=== PATIENT | male | born 1955 | race Caucasian/White ===

== ENCOUNTER 2020-07-10 12:28 | Emergency (ER) | payer BC, OTHER ==
[2020-07-10] MEDS ORDERED: Sodium Chloride 0.9% 10 ML Syringe FLUSH PRN (12:40)
--- NOTE | 2020-07-10 13:10 | EDM.PDOC ---
ED HPI GENERAL MEDICAL PROBLEM - General Stated Complaint: CONFUSION Time Seen by Provider: 07/10/20 12:30 Source of Information: Reports: EMS, Family History Limitations: Reports: No Limitations - History of Present Illness INITIAL COMMENTS - FREE TEXT/NARRATIVE: Pt. presents to ER via EMS. Family states that he went to bed last night at around 9PM and was behaving appropriately with no complaints. states that she heard the patient fall twice at around 3 and 3:30 AM (she sleeps in a separate bedroom) . She states that she and her son checked on the patient, and he was able to answer questions at that time, but his gait was unsteady. She states at around 4:30, she stated that she heard him up walking around complaining of headache. She states that he was using the wall to support himself. She states that he has had some confused speech at times. He was incontinent of urine and stool. He is unable to recall the date. She states that he has been opening doors, turning on faucets, etc. for no apparent reason. Pt. has no history of cerebrovascular disease. No history of previous stoke, tumors, aneurysm, or other pathology. He does have a history of HTN, PVT with pervious DVT (previously on coumadin but not recently), dyslipidemia, and IFG. No history of previous OR. He denies any chest pain, shortness of breath, cough, congestion, fatigue, fever, chills, dysuria, abdominal pain, current headache, nausea, vomiting or other worrisome signs/symptoms. Pt. states that he does remember falling in his bedroom and landed on his L side, but states that he has no continued symptoms from this. Pt. denies any use of drugs or ETOH. EMS called a stroke code prior to arrival to ER. Onset: Today Onset Date: 07/09/20 Onset Time: 21:00 Location: Reports: Generalized - Related Data Allergies Allergy/AdvReac Type Severity Reaction Status Date / Time No Known Drug Allergies Allergy Other Verified 03/14/14 17:47 Home Meds: Home Meds amLODIPine Besylate [Amlodipine Besylate] 5 mg PO DAILY 06/21/13 [History] atorvaSTATin Calcium [Atorvastatin Calcium] 20 mg PO DAILY 06/21/13 [History] Aspirin [Adult Low Dose Aspirin EC] 81 mg PO DAILY 01/16/14 [History] Multivitamin [Multi Vitamin Daily] 1 each PO 01/16/14 [History] Ferrous Sulfate 325 mg PO DAILY 05/28/14 [History] Omeprazole [Prilosec] 20 mg PO BID 05/28/14 [History] ED ROS GENERAL - Review of Systems Review Of Systems: See Below Constitutional: Reports: No Symptoms. Denies: Fever, Chills, Malaise, Weakness, Fatigue HEENT: Reports: No Symptoms Respiratory: Reports: No Symptoms Cardiovascular: Reports: No Symptoms Endocrine: Reports: No Symptoms GI/Abdominal: Reports: No Symptoms : Reports: No Symptoms Musculoskeletal: Reports: No Symptoms Skin: Reports: No Symptoms Neurological: Reports: Confusion, Paresthesia, Gait Disturbance, Other (dysarthria) Psychiatric: Reports: No Symptoms Hematologic/Lymphatic: Reports: No Symptoms Immunologic: Reports: No Symptoms ED EXAM, GENERAL - Physical Exam Exam: See Below Exam Limited By: No Limitations General Appearance: Alert, WD/WN, No Apparent Distress Eye Exam: Left Eye: Other (significant L lateral visual field deficit), Bilateral Eye: EOMI, Normal Fundi, Normal Inspection, PERRL Head: Atraumatic, Normocephalic Neck: Normal Inspection, Supple, Non-Tender, Full Range of Motion Respiratory/Chest: No Respiratory Distress, Lungs Clear, No Accessory Muscle Use, Chest Non-Tender Cardiovascular: Normal Peripheral Pulses, Regular Rate, Rhythm, No Edema, No JVD, No Murmur Peripheral Pulses: 4+: Posterior Tibial (L), Posterior Tibial (R) GI/Abdominal: Soft, Non-Tender, No Distention, No Mass (Male) Exam: Deferred Rectal (Males) Exam: Deferred Back Exam: Normal Inspection, Full Range of Motion Extremities: Normal Inspection, Normal Range of Motion, Non-Tender, Normal Capillary Refill Neurological: Alert, Confused, Disoriented, Sensory/Motor Deficit (L sided), Other (Please see attached NIH stroke scale. Score is 5 (1 off for following commands, 1 for visual field, 1 off for sensation, 1 off for speech content, 1 off for neglect. Incontinent of stool and urine.). No: Normal Gait Psychiatric: Normal Affect, Normal Mood Skin Exam: Warm, Dry, Intact Lymphatic: No Adenopathy #1 Interpretation Rhythm: NSR Course - Orders/Labs/Meds Orders: Active Orders 24 hr Category Date Time Status Chest 1V Frontal [CR] Stat Exams 07/10/20 12:41 Ordered Head wo Cont [CT] Stat Exams 07/10/20 12:40 Taken CULTURE BLOOD [BC] Stat Lab 07/10/20 13:30 Received CULTURE BLOOD [BC] Stat Lab 07/10/20 13:36 Received DRUG SCREEN, URINE [URCHEM] Stat Lab 07/10/20 12:42 Ordered UA RFX JUSTINE AND CULT IF INDIC [URIN] Stat Lab 07/10/20 12:41 Ordered Sodium Chloride 0.9% [Saline Flush] Med 07/10/20 12:40 Active 10 ml FLUSH ASDIRECTED PRN Blood Culture x2 Reflex Set [OM.PC] Stat Oth 07/10/20 12:41 Ordered Peripheral IV Insertion Adult [OM.PC] Routine Oth 07/10/20 12:41 Ordered Medication Orders Sodium Chloride (Saline Flush) 10 ml FLUSH ASDIRECTED PRN PRN Reason: Keep Vein Open Labs: Laboratory Tests 07/10/20 07/10/20 07/10/20 Range/Units 12:46 12:46 12:46 WBC 15.0 H (4.0-10.0) x10^3/uL RBC 5.55 (4.5-6.0) x10^6/uL Hgb 16.2 D (14.0-18.0) g/dL Hct 48.0 (40.0-52.0) % MCV 86.5 (78.0-93.0) fL MCH 29.2 (26.0-32.0) pg MCHC 33.8 (32.0-36.0) g/dL RDW Coeff of Karan 14.8 (10.0-15.0) % Plt Count 260 (130-400) x10^3/uL Add Manual Diff Yes Neutrophils % (Manual) 87 H (50-80) % Band Neutrophils % 1 (0-6) % Lymphocytes % (Manual) 2 L (25-50) % Reactive Lymphs % 2 H (0) % Monocytes % (Manual) 8 (2-11) % Hypersegmented Neuts Rare H Vacuolated Monocytes Rare Platelet Estimate Adequate Giant Platelets Rare H Target Cells Rare PT 9.3 L (9.5-12.3) SEC INR 0.8 L (2.0-3.5) Sodium 140 (136-145) mmol/L Potassium 4.2 (3.5-5.1) mmol/L Chloride 104 (98-107) mmol/L Carbon Dioxide 26 (21-32) mmol/L Anion Gap 14.2 (10-20) mmol/L BUN 27 H (7-18) mg/dL Creatinine 1.0 (0.70-1.30) mg/dL Est Cr Clr Drug Dosing TNP Estimated GFR (MDRD) > 60 Glucose 106 (74-106) mg/dL Lactic Acid (0.4-2.0) mmol/L Calcium 8.9 (8.5-10.1) mg/dL Corrected Calcium 9.22 (8.5-10.1) mg/dL Magnesium 2.0 (1.8-2.4) mg/dL Total Bilirubin 0.5 (0.2-1.0) mg/dL AST 24 (15-37) U/L ALT 64 H (16-63) U/L Alkaline Phosphatase 105 (46-116) U/L POC Troponin I (0.00-0.08) ng/mL C-Reactive Protein < 0.2 (<=0.9) mg/dL NT-Pro-B Natriuret Pep 78 (<=125) pg/mL Total Protein 6.9 (6.4-8.2) g/dL Albumin 3.6 (3.4-5.0) g/dL Globulin 3.3 Albumin/Globulin Ratio 1.09 TSH, Ultra Sensitive 1.877 (0.358-3.74) uIU/mL Ethyl Alcohol < 3 (0-3) mg/dL SARS CoV-2 RNA Rapid KATI (NEGATIVE) 07/10/20 07/10/20 07/10/20 Range/Units 12:46 12:49 13:10 WBC (4.0-10.0) x10^3/uL RBC (4.5-6.0) x10^6/uL Hgb (14.0-18.0) g/dL Hct (40.0-52.0) % MCV (78.0-93.0) fL MCH (26.0-32.0) pg MCHC (32.0-36.0) g/dL RDW Coeff of Karan (10.0-15.0) % Plt Count (130-400) x10^3/uL Add Manual Diff Neutrophils % (Manual) (50-80) % Band Neutrophils % (0-6) % Lymphocytes % (Manual) (25-50) % Reactive Lymphs % (0) % Monocytes % (Manual) (2-11) % Hypersegmented Neuts Vacuolated Monocytes Platelet Estimate Giant Platelets Target Cells PT (9.5-12.3) SEC INR (2.0-3.5) Sodium (136-145) mmol/L Potassium (3.5-5.1) mmol/L Chloride (98-107) mmol/L Carbon Dioxide (21-32) mmol/L Anion Gap (10-20) mmol/L BUN (7-18) mg/dL Creatinine (0.70-1.30) mg/dL Est Cr Clr Drug Dosing Estimated GFR (MDRD) Glucose (74-106) mg/dL Lactic Acid 1.7 (0.4-2.0) mmol/L Calcium (8.5-10.1) mg/dL Corrected Calcium (8.5-10.1) mg/dL Magnesium (1.8-2.4) mg/dL Total Bilirubin (0.2-1.0) mg/dL AST (15-37) U/L ALT (16-63) U/L Alkaline Phosphatase (46-116) U/L POC Troponin I 0.01 (0.00-0.08) ng/mL C-Reactive Protein (<=0.9) mg/dL NT-Pro-B Natriuret Pep (<=125) pg/mL Total Protein (6.4-8.2) g/dL Albumin (3.4-5.0) g/dL Globulin Albumin/Globulin Ratio TSH, Ultra Sensitive (0.358-3.74) uIU/mL Ethyl Alcohol (0-3) mg/dL SARS CoV-2 RNA Rapid KATI Negative (NEGATIVE) Meds: Medications Generic Name Dose Route Start Last Admin Trade Name Freq PRN Reason Stop Dose Admin Sodium Chloride 10 ml 07/10/20 12:40 Saline Flush FLUSH ASDIRECTED PRN Keep Vein Open - Radiology Interpretation Free Text/Narrative:: evidence of acute R frontal, parietal, and occipital infarct with evidence of old frontal infarct as well. No obvious bleeding noted. Departure - Departure Time of Disposition: :03 Disposition: DC/Tfer to Acute Hospital 02 Clinical Impression: CVA (cerebral vascular accident) - Discharge Information Referrals: Adam Serrano MD [Primary Care Provider] - - Problem List Review Problem List Initiated/Reviewed/Updated: Yes - My Orders Last 24 Hours: My Active Orders 07/10/20 12:40 Head wo Cont [CT] Stat Sodium Chloride 0.9% [Saline Flush] 10 ml FLUSH ASDIRECTED PRN 07/10/20 12:41 Chest 1V Frontal [CR] Stat UA RFX JUSTINE AND CULT IF INDIC [URIN] Stat Blood Culture x2 Reflex Set [OM.PC] Stat Peripheral IV Insertion Adult [OM.PC] Routine 07/10/20 12:42 DRUG SCREEN, URINE [URCHEM] Stat 07/10/20 13:30 CULTURE BLOOD [BC] Stat 07/10/20 13:36 CULTURE BLOOD [BC] Stat - Assessment/Plan Last 24 Hours: My Active Orders 07/10/20 12:40 Head wo Cont [CT] Stat Sodium Chloride 0.9% [Saline Flush] 10 ml FLUSH ASDIRECTED PRN 07/10/20 12:41 Chest 1V Frontal [CR] Stat UA RFX JUSTINE AND CULT IF INDIC [URIN] Stat Blood Culture x2 Reflex Set [OM.PC] Stat Peripheral IV Insertion Adult [OM.PC] Routine 07/10/20 12:42 DRUG SCREEN, URINE [URCHEM] Stat 07/10/20 13:30 CULTURE BLOOD [BC] Stat 07/10/20 13:36 CULTURE BLOOD [BC] Stat Plan: Pt. will be transferred to [facility] neuro ICU. He is a code 1. NIH stroke scale total was 5. Dr. Rodriguez accepts the patient in transfer. Pt. will be transported via [facility] ground ambulance. Discussed findings with pt. , Alysa and with the patient. They are in agreement with plan of care.
[2020-07-10 13:23] LABS: CHLORIDE,CL 104 mmol/L (98-107); SODIUM,NA 140 mmol/L (136-145)
[2020-07-10 13:25] LABS: ANION GAP 14.2 mmol/L (10-20)
--- NOTE | 2020-07-10 13:47 | CT ---
[id number] CT/CT Head WO IV EXAM: CT Head WO IV CLINICAL DATA: DYSARTHRIS, LEFT SIDED WEAKNESS. COMPARISON STUDY: None FINDINGS: There are large areas of hypodensity with loss of avalos-white matter differentiation involving the right frontal, parietal and occipital lobes. This is most pronounced within the right occipital lobe. Findings are consistent with subacute infarct. No hemorrhage. No significant mass effect on the surrounding brain or shift of midline. Old infarct with associated encephalomalacia involving the left frontal lobe. Generalized parenchymal atrophy with scattered areas of nonspecific white matter disease, commonly seen as sequela of chronic microvascular ischemia. Viraj foramen magnum. Soft tissues are unremarkable. Paranasal sinuses and mastoid air cells are clear. IMPRESSION: 1. Subacute infarct involving the right frontal, parietal and occipital lobes. This is most pronounced within the right occipital lobe. No hemorrhagic conversion. No significant shift of midline. Findings discussed with ordering provider at time of dictation. Lopez Hernández DO 07/10/20 2218 Thank you for allowing us to participate in the care of your patient.
--- NOTE | 2020-07-10 14:01 | CR ---
[id number] RAD/RAD Chest PA or AP 1V EXAM: RAD Chest PA or AP 1V INDICATION: CONFUSION. COMPARISON: None. DISCUSSION: Cardiomediastinal silhouette is normal in size and contour. No infiltrate, effusion, pneumothorax, or edema. IMPRESSION: No acute cardiopulmonary abnormality. Lopez Hernández DO 07/10/20 1235 Thank you for allowing us to participate in the care of your patient.
[2020-07-10 14:10] LABS: BARBITURATE SCREEN,URINE NEGATIVE (NEGATIVE); BENZODIAZEPINES SCREEN,URINE NEGATIVE (NEGATIVE); EDDP,URINE SCREEN NEGATIVE (NEGATIVE); METHAMPHETAMINE SCREEN, URINE NEGATIVE (NEGATIVE); TCA SCREEN,URINE POSITIVE (NEGATIVE); THC SCREEN,URINE 50 NG/ML NEGATIVE (NEGATIVE)
== END 2020-07-10 14:36 | disposition short-term general hospital (02) ==
LOC: VM.ED 12:28
DX: I63.9 Cerebral infarction, unspecified (principal); I10 Essential (primary) hypertension; E78.5 Hyperlipidemia, unspecified; Z79.899 Other long term (current) drug therapy; Z79.82 Long term (current) use of aspirin; Z20.828 Contact with and (suspected) exposure to other viral communicable diseases
CPT/HCPCS: 36415; 70450; 71045; 80053; 80305-QW; 80307; 81003; 83605; 83735; 83880; 84443; 84484; 85025; 85610; 86140; 87040; 93010; 99284; 99285-25; U0002

== ENCOUNTER 2020-08-11 14:21 | Inpatient (IN) | payer OTHER ==
[2020-08-11] MEDS ORDERED: Ondansetron 4 MG Tab.DIS PO PRN (16:43)
[2020-08-11] MEDS ORDERED: Polyethylene Glycol 3350 Powder 17 GM Packet PO PRN (16:43)
--- NOTE | 2020-08-11 16:56 | PCM.HP.2 ---
H&P History of Present Illness - General Date of Service: 08/11/20 Admit Problem/Dx: Admission Diagnosis/Problem Admission Diagnosis/Problem Stroke due to embolism of right middle cerebral artery - History of Present Illness Initial Comments - Free Text/Narative: Iain Avalos is a 65-year-old male who is admitted today as stepdown for rehab after an acute stroke. He has a history of hypertension, dyslipidemia, smoking, depression. Patient was hospitalized at [facility] in [place] from 07/10/2020 through 07/23/2020; at that point he was discharged to physical rehab through 08/11/2020. Patient originally presented after he had had confusion, slurred speech, and difficulty in word finding. On admission he was found to have a large right hemispheric stroke which is attributed to likely ruptured clot from the right internal carotid artery. Neuro team was also concerned about potential cardiac origin and he was discharged on his seal patch. 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 Patient had a follow-up head CT on 07/28/2020; was restarted on his baby aspirin on 07/29. He did well at rehab completing 3 hours per day including speech therapy for cognitive/medication, physical therapy for remobilization and occupational therapy to aid in his autonomy and a self-cares. At the time of discharge from rehab patient was able to ambulate over 700 feet with no assistive device but did require gait assistance for occasional balance corrections. He still required cueing for scanning to the left to avoid objects and path finding. Provider thought he would benefit from continued PT intervention. In the realm of occupational therapy patient was able to take care of many of his daily tasks but with good direction. He was noted to have slow processing speed, impaired attention, left-sided neglect. He continued to have 2-2-1/2 out of 5 strength in the left upper extremity. As for cognition and language patient was noted to have deficits in the areas of attention, memory, executive functions, and visual spatial skills and processing speed. He is also noted to still have mild oral dysphagia. He was tolerating a regular diet with thins without any signs or symptoms of aspiration. To this provider patient notes that he is doing pretty well. Excited to be closer to home. Still has ongoing weakness in his LUE. Has pain in the shoulder as well; this was xray'd this morning and showed some sublexation of the humeral head (PMR doctor recommended possible sling if patient would like). Still having trouble with his vision on the left side but otherwise feels like he is doing well from a rehab standpoint. Bilateral Pain Score (Numeric/FACES): 6 - Related Data Allergies/Adverse Reactions: Allergies Allergy/AdvReac Type Severity Reaction Status Date / Time No Known Drug Allergies Allergy Other Verified 08/11/20 12:44 Home Medications: Home Meds Aspirin [Adult Low Dose Aspirin EC] 81 mg PO DAILY 01/16/14 [History] Multivitamin [Multi Vitamin Daily] 1 tab PO DAILY@1800 01/16/14 [History] Acetaminophen [Tylenol] 650 mg PO TID 08/11/20 [History] DULoxetine HCl [Duloxetine HCl] 40 mg PO DAILY 08/11/20 [History] Docusate Sodium 100 mg PO BID 08/11/20 [History] Gabapentin [Neurontin] 300 mg PO TID 08/11/20 [History] Melatonin 3 mg PO BEDTIME 08/11/20 [History] Nicotine [Nicotine Patch] 42 mg TOP DAILY 08/11/20 [History] Sennosides/Docusate Sodium [Senna-Docusate Sodium Tablet] 2 tab PO BEDTIME 08/11/20 [History] atorvaSTATin Calcium [Lipitor] 40 mg PO BEDTIME 08/11/20 [History] carvediloL [Carvedilol] 3.125 mg PO BIDMEALS 08/11/20 [History] lisinopriL [Lisinopril] 30 mg PO DAILY 08/11/20 [History] Past Medical History Cardiovascular History: Reports: Blood Clots/VTE/DVT, High Cholesterol, Hypertension, PVD Respiratory History: Reports: Other (See Below) Other Respiratory History: Chronic lung disease Gastrointestinal History: Reports: GI Bleed Musculoskeletal History: Reports: Other (See Below) Other Musculoskeletal History: closed displaced fracture of lateral malleolus fi bula Endocrine/Metabolic History: Reports: Obesity/BMI 30+, Other (See Below) Other Endocrine/Metabolic History: impaired fasting glucose - Past Surgical History HEENT Surgical History: Reports: Tonsillectomy GI Surgical History: Reports: EGD Neurological Surgical History: Reports: Other (See Below) Other Neurological Surgeries/Procedures: emergency craniotomy Musculoskeletal Surgical History: Reports: ORIF Social & Family History - Family History Family Medical History: No Pertinent Family History Respiratory: Reports: None GI: Reports: None - Tobacco Use Tobacco Use Status *Q: Current Every Day Tobacco User Years of Tobacco use: 20 Packs/Tins Daily: 2 Used Tobacco, but Quit: Yes Month/Year Tobacco Last Used: 07/23/2020 Tobacco Use Comment: patient has a plan to quit smokig. 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[employer]) H&P Review of Systems - Review of Systems: Review Of Systems: See Below General: Reports: No Symptoms HEENT: Reports: Visual Changes Pulmonary: Reports: No Symptoms Cardiovascular: Reports: No Symptoms Gastrointestinal: Reports: No Symptoms Genitourinary: Reports: No Symptoms Musculoskeletal: Reports: Shoulder Pain, Other (left arm weakness) Skin: Reports: No Symptoms Psychiatric: Reports: No Symptoms Neurological: Reports: Headache Hematologic/Lymphatic: Reports: Easy Bruising Exam - Exam Exam: See Below - Vital Signs Vital Signs: Last Vital Signs Temp 95.2 F L 08/11/20 14:40 Pulse 86 08/11/20 14:40 Resp 16 08/11/20 14:40 BP 89/56 L 08/11/20 14:40 Pulse Ox 99 08/11/20 14:40 Weight: 196 lb 12.8 oz - Exam General: Alert, Oriented, Cooperative HEENT: Conjunctiva Clear, EOMI, Posterior Pharynx Clear, Pupils Equal, Pupils Reactive, PERRLA Neck: Supple, Trachea Midline Lungs: Clear to Auscultation, Normal Respiratory Effort Cardiovascular: Regular Rate, Regular Rhythm GI/Abdominal Exam: Normal Bowel Sounds, Soft, Non-Tender, No Distention Extremities: Normal Inspection, Non-Tender, No Pedal Edema, Limited Range of Motion (left upper arm) Skin: Warm, Dry, Intact, Other (craniectomy is healing well, incision is CDI) Neurological: Cranial Nerves Intact Neuro Extensive - Mental Status: Alert, Oriented x3, Normal Mood/Affect Neuro Extensive - Motor, Sensory, Reflexes: CN II-XII Intact Psychiatric: Alert, Normal Affect, Normal Mood Sepsis Event Note - Evaluation Sepsis Screening Result: No Definite Risk - Focused Exam Vital Signs: Vital Signs Temp Pulse Resp BP Pulse Ox 08/11/20 14:40 95.2 F L 86 16 89/56 L 99 *Q Meaningful Use (ADM) - VTE *Q VTE Mechanical Contraindications *Q: At Risk for Falls VTE Pharmacological Contraindications *Q: Risk of Bleeding VTE Anticoagulation Contraindications: Medical/Procedure Contrai - VTE Risk Assess *Q Each Risk Factor Represents 1 Point: History of prior major surgery less than 1 month Total Score 1 Point Risk Factors: 1 Each Risk Factor Represents 2 Points: Age 60 - 74 Years Total Score 2 Point Risk Factors: 2 Each Risk Factor Represents 5 Points: Stroke, Less than 1 Month Total Score 5 Point Risk Factors: 5 - Problem List (1) CVA (cerebral vascular accident) SNOMED Code(s): 909872206 ICD Code: I63.9 - CEREBRAL INFARCTION, UNSPECIFIED Status: Acute Current Visit: No (2) Left arm weakness SNOMED Code(s): 554285937 ICD Code: R29.898 - OTH SYMPTOMS AND SIGNS INVOLVING THE MUSCULOSKELETAL SYSTEM Status: Acute Current Visit: Yes (3) HTN (hypertension) SNOMED Code(s): 46614197 ICD Code: I10 - ESSENTIAL (PRIMARY) HYPERTENSION Status: Acute Current Visit: Yes (4) HLD (hyperlipidemia) SNOMED Code(s): 33031351 ICD Code: E78.5 - HYPERLIPIDEMIA, UNSPECIFIED Status: Acute Current Visit: Yes (5) Depression SNOMED Code(s): 25421573 ICD Code: F32.9 - MAJOR DEPRESSIVE DISORDER, SINGLE EPISODE, UNSPECIFIED Status: Acute Current Visit: Yes Problem List Initiated/Reviewed/Updated: Yes Orders Last 24hrs: Active Orders 24 hr Category Date Time Status Patient Status [ADT] Routine ADT 08/11/20 16:43 Ordered Ambulate [RC] PER UNIT ROUTINE Care 08/11/20 16:46 Ordered Antiembolic Devices [RC] PER UNIT ROUTINE Care 08/11/20 16:47 Ordered Oxygen Therapy [RC] PRN Care 08/11/20 16:43 Ordered Up With Assistance [RC] ASDIRECTED Care 08/11/20 16:43 Ordered Vital Signs [RC] DAILY Care 08/11/20 16:43 Ordered OT Evaluation and Treatment [CONS] Routine Cons 08/11/20 16:43 Ordered PT Evaluation and Treatment [CONS] Routine Cons 08/11/20 16:43 Ordered CUSTOMS COMPLIANCE MANAGER Evaluation and Treatment [CONS] Routine Cons 08/11/20 16:43 Ordered Regular Diet [DIET] Diet 08/11/20 Dinner Ordered Acetaminophen [TylenoL] Med 08/11/20 16:43 Ordered 650 mg PO Q4H PRN Aspirin [Halfprin] Med 08/12/20 08:00 Ordered 81 mg PO DAILY DULoxetine HCl [Duloxetine HCl] Med 08/12/20 08:00 Ordered 40 mg PO DAILY Docusate Sodium [Colace] Med 08/11/20 16:43 Ordered 100 mg PO BID PRN Gabapentin [Neurontin] Med 08/11/20 20:00 Ordered 300 mg PO TID Melatonin Med 08/11/20 20:00 Ordered 3 mg PO BEDTIME Multivitamin [Multi-Vitamin Daily] Med 08/11/20 18:00 Ordered 1 tab PO DAILY@1800 Nicotine [Habitrol] Med 08/12/20 08:00 Ordered 42 mg TOP DAILY Ondansetron [Zofran ODT] Med 08/11/20 16:43 Ordered 4 mg PO Q4H PRN atorvaSTATin [Lipitor] Med 08/11/20 20:00 Ordered 40 mg PO BEDTIME carvediloL [Coreg] Med 08/11/20 18:00 Ordered 3.125 mg PO BIDMEALS lisinopriL [Lisinopril] Med 08/12/20 08:00 Ordered 30 mg PO DAILY polyethylene glycoL 3350 [MiraLAX] Med 08/11/20 16:43 Ordered 17 gm PO DAILY PRN Anticoagulation Contraindications VTE [AST] Per Unit Oth 08/11/20 16:43 Ordered Routine Antiembolic Hose [OM.PC] Per Unit Routine Oth 08/11/20 16:46 Ordered Resuscitation Status Routine Resus Stat 08/11/20 16:43 Ordered Medication Orders Acetaminophen (Tylenol) 650 mg PO Q4H PRN PRN Reason: Pain (Mild 1-3)/fever Aspirin (Halfprin) 81 mg PO DAILY MARJ Atorvastatin Calcium (Lipitor) 40 mg PO BEDTIME MARJ Carvedilol (Coreg) 3.125 mg PO BIDMEALS MARJ Docusate Sodium (Colace) 100 mg PO BID PRN PRN Reason: Constipation Gabapentin (Neurontin) 300 mg PO TID MARJ Non-Formulary Medication (Duloxetine Hcl [Duloxetine Hcl]) 40 mg PO DAILY [facility] Non-Formulary Medication (Lisinopril [Lisinopril]) 30 mg PO DAILY [facility] Ondansetron HCl (Zofran Odt) 4 mg PO Q4H PRN PRN Reason: nausea, able to take PO Polyethylene Glycol (Miralax) 17 gm PO DAILY PRN PRN Reason: Constipation Assessment/Plan Comment:: 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 Patient does have ziopatch in place for 2 weeks - The patient has residual left hemiparesis, has been doing therapy with PMR prior to transfer Plan: - Continue PT, OT, ST - At this time up with 1 assist from nursing - Continued use of helmet while out of bed - Continue statin, aspirin - No other DVT prophylaxis given hemorrhagic transformation of his stroke - Continues on scheduled neurontin for pain control: 300mg TID Left shoulder pain - Xray 08/11/20 dmeonstrated probably sublexation of the humeral head Plan: - Tylenol, heat, ice for pain - Could consider use of sling Chronic: - HTN - continue norvasc, coreg, lisinopril. Will keep close eye on BP as he was having some hypotensive episodes at rehab - Depression - continue duloxetine 40mg daily - HLD - continue atorvastatin - Tobacco use disorder - continue patches (42mg daily) Diet: regular DVT: none (stockings, baby aspirin, ambulatory, s/p stroke with craniectomy) Code: Full Disposition: admitting to swing bed for ongoing therapies with hopes of returning home. Patient will benefit from ongoing PT, OT, ST until deemed stable by each service for next stage of care. - Mortality Measure Prognosis:: Good
[2020-08-11] MEDS: Multivitamins with Iron/Calcium/Folic Acid/Minerals Tab PO SCH (20:38)
[2020-08-11] MEDS: Carvedilol 3.125 MG Tab PO SCH (20:38)
[2020-08-11] MEDS: Gabapentin 300 MG Cap PO SCH (20:38)
[2020-08-11] MEDS: Docusate Sodium 100 MG Cap PO PRN (20:38)
[2020-08-11] MEDS: Melatonin 3 MG Tab PO SCH (20:39)
[2020-08-11] MEDS: atorvaSTATin 40 MG Tab PO SCH (20:39)
[2020-08-12] MEDS: Aspirin 81 MG Tab.EC PO SCH (07:57)
[2020-08-12] MEDS: Gabapentin 300 MG Cap PO SCH ×3 (07:57→19:30)
[2020-08-12] MEDS: DULoxetine 20 MG Cap PO SCH (07:57)
[2020-08-12] MEDS: Nicotine 21 MG/24 Hr Patch TOP SCH (07:58)
[2020-08-12] MEDS: Lisinopril 10 MG Tab PO SCH (07:59)
[2020-08-12] MEDS: Carvedilol 3.125 MG Tab PO SCH ×2 (07:59→17:49)
[2020-08-12] MEDS: Acetaminophen 325 MG Tab PO PRN ×2 (08:09→19:30)
[2020-08-12] MEDS: Multivitamins with Iron/Calcium/Folic Acid/Minerals Tab PO SCH (17:49)
[2020-08-12] MEDS: Docusate Sodium 100 MG Cap PO PRN (17:49)
[2020-08-12] MEDS: Melatonin 3 MG Tab PO SCH (19:30)
[2020-08-12] MEDS: atorvaSTATin 40 MG Tab PO SCH (19:30)
[2020-08-13] MEDS: Acetaminophen 325 MG Tab PO PRN ×2 (07:57→20:04)
[2020-08-13] MEDS: Aspirin 81 MG Tab.EC PO SCH (07:58)
[2020-08-13] MEDS: Nicotine 21 MG/24 Hr Patch TOP SCH (07:58)
[2020-08-13] MEDS: Lisinopril 10 MG Tab PO SCH (07:58)
[2020-08-13] MEDS: Gabapentin 300 MG Cap PO SCH ×3 (07:59→20:05)
[2020-08-13] MEDS: Carvedilol 3.125 MG Tab PO SCH ×2 (07:59→17:49)
[2020-08-13] MEDS: DULoxetine 20 MG Cap PO SCH (07:59)
[2020-08-13] MEDS: Multivitamins with Iron/Calcium/Folic Acid/Minerals Tab PO SCH (17:50)
[2020-08-13] MEDS: atorvaSTATin 40 MG Tab PO SCH (20:05)
[2020-08-13] MEDS: Melatonin 3 MG Tab PO SCH (20:05)
[2020-08-14] MEDS: Acetaminophen 325 MG Tab PO PRN ×3 (04:57→21:13)
[2020-08-14] MEDS: Nicotine 21 MG/24 Hr Patch TOP SCH (08:15)
[2020-08-14] MEDS: DULoxetine 20 MG Cap PO SCH (08:17)
[2020-08-14] MEDS: Carvedilol 3.125 MG Tab PO SCH ×2 (08:17→17:58)
[2020-08-14] MEDS: Aspirin 81 MG Tab.EC PO SCH (08:18)
[2020-08-14] MEDS: Gabapentin 300 MG Cap PO SCH ×3 (08:18→19:50)
[2020-08-14] MEDS: Lisinopril 10 MG Tab PO SCH (08:18)
[2020-08-14] MEDS: Multivitamins with Iron/Calcium/Folic Acid/Minerals Tab PO SCH (17:58)
[2020-08-14] MEDS: atorvaSTATin 40 MG Tab PO SCH (19:50)
[2020-08-14] MEDS: Melatonin 3 MG Tab PO SCH (19:50)
[2020-08-15] MEDS: Nicotine 21 MG/24 Hr Patch TOP SCH (08:10)
[2020-08-15] MEDS: Acetaminophen 325 MG Tab PO PRN ×2 (08:10→19:46)
[2020-08-15] MEDS: Carvedilol 3.125 MG Tab PO SCH ×2 (08:11→18:15)
[2020-08-15] MEDS: DULoxetine 20 MG Cap PO SCH (08:11)
[2020-08-15] MEDS: Gabapentin 300 MG Cap PO SCH ×3 (08:11→19:45)
[2020-08-15] MEDS: Lisinopril 10 MG Tab PO SCH (08:12)
[2020-08-15] MEDS: Aspirin 81 MG Tab.EC PO SCH (08:12)
[2020-08-15] MEDS: Multivitamins with Iron/Calcium/Folic Acid/Minerals Tab PO SCH (18:15)
[2020-08-15] MEDS: atorvaSTATin 40 MG Tab PO SCH (19:45)
[2020-08-15] MEDS: Melatonin 3 MG Tab PO SCH (19:45)
[2020-08-15] MEDS: Docusate Sodium 100 MG Cap PO PRN (19:45)
[2020-08-16] MEDS: Nicotine 21 MG/24 Hr Patch TOP SCH (08:07)
[2020-08-16] MEDS: Gabapentin 300 MG Cap PO SCH ×3 (08:08→20:04)
[2020-08-16] MEDS: Acetaminophen 325 MG Tab PO PRN ×2 (08:08→20:04)
[2020-08-16] MEDS: Aspirin 81 MG Tab.EC PO SCH (08:08)
[2020-08-16] MEDS: DULoxetine 20 MG Cap PO SCH (08:09)
[2020-08-16] MEDS: Lisinopril 10 MG Tab PO SCH (08:09)
[2020-08-16] MEDS: Carvedilol 3.125 MG Tab PO SCH ×2 (08:09→18:27)
[2020-08-16] MEDS: Multivitamins with Iron/Calcium/Folic Acid/Minerals Tab PO SCH (18:27)
[2020-08-16] MEDS: atorvaSTATin 40 MG Tab PO SCH (20:04)
[2020-08-16] MEDS: Melatonin 3 MG Tab PO SCH (20:04)
[2020-08-16] MEDS: Docusate Sodium 100 MG Cap PO PRN (20:04)
[2020-08-17] MEDS: Acetaminophen 325 MG Tab PO PRN ×2 (08:53→19:50)
[2020-08-17] MEDS: Nicotine 21 MG/24 Hr Patch TOP SCH (08:53)
[2020-08-17] MEDS: Carvedilol 3.125 MG Tab PO SCH ×2 (08:54→17:57)
[2020-08-17] MEDS: DULoxetine 20 MG Cap PO SCH (08:54)
[2020-08-17] MEDS: Lisinopril 10 MG Tab PO SCH (08:54)
[2020-08-17] MEDS: Aspirin 81 MG Tab.EC PO SCH (08:54)
[2020-08-17] MEDS: Gabapentin 300 MG Cap PO SCH ×3 (08:54→19:50)
[2020-08-17] MEDS: Multivitamins with Iron/Calcium/Folic Acid/Minerals Tab PO SCH (17:57)
[2020-08-17] MEDS: atorvaSTATin 40 MG Tab PO SCH (19:50)
[2020-08-17] MEDS: Melatonin 3 MG Tab PO SCH (19:50)
[2020-08-18] MEDS: Nicotine 21 MG/24 Hr Patch TOP SCH (08:36)
[2020-08-18] MEDS: Gabapentin 300 MG Cap PO SCH ×3 (08:36→20:15)
[2020-08-18] MEDS: Lisinopril 10 MG Tab PO SCH (08:36)
[2020-08-18] MEDS: Carvedilol 3.125 MG Tab PO SCH ×2 (08:37→18:16)
[2020-08-18] MEDS: DULoxetine 20 MG Cap PO SCH (08:37)
[2020-08-18] MEDS: Aspirin 81 MG Tab.EC PO SCH (08:38)
[2020-08-18] MEDS: Multivitamins with Iron/Calcium/Folic Acid/Minerals Tab PO SCH (18:14)
[2020-08-18] MEDS: atorvaSTATin 40 MG Tab PO SCH (20:14)
[2020-08-18] MEDS: Melatonin 3 MG Tab PO SCH (20:15)
[2020-08-18] MEDS: Acetaminophen 325 MG Tab PO PRN (20:15)
[2020-08-19] MEDS: DULoxetine 20 MG Cap PO SCH (08:22)
[2020-08-19] MEDS: Carvedilol 3.125 MG Tab PO SCH ×2 (08:23→18:21)
[2020-08-19] MEDS: Lisinopril 10 MG Tab PO SCH (08:23)
[2020-08-19] MEDS: Aspirin 81 MG Tab.EC PO SCH (08:24)
[2020-08-19] MEDS: Gabapentin 300 MG Cap PO SCH ×3 (08:24→20:07)
[2020-08-19] MEDS: Nicotine 21 MG/24 Hr Patch TOP SCH (08:24)
[2020-08-19] MEDS: Multivitamins with Iron/Calcium/Folic Acid/Minerals Tab PO SCH (18:21)
[2020-08-19] MEDS: atorvaSTATin 40 MG Tab PO SCH (20:07)
[2020-08-19] MEDS: Melatonin 3 MG Tab PO SCH (20:07)
[2020-08-19] MEDS: Acetaminophen 325 MG Tab PO PRN (20:08)
[2020-08-20] MEDS: DULoxetine 20 MG Cap PO SCH (07:48)
[2020-08-20] MEDS: Gabapentin 300 MG Cap PO SCH ×3 (07:48→19:29)
[2020-08-20] MEDS: Aspirin 81 MG Tab.EC PO SCH (07:48)
[2020-08-20] MEDS: Nicotine 21 MG/24 Hr Patch TOP SCH (07:48)
[2020-08-20] MEDS: Lisinopril 10 MG Tab PO SCH (07:49)
[2020-08-20] MEDS: Acetaminophen 325 MG Tab PO PRN ×2 (07:49→18:00)
[2020-08-20] MEDS: Carvedilol 3.125 MG Tab PO SCH ×2 (07:49→17:58)
[2020-08-20] MEDS ORDERED: [UNRECOGNIZED DRUG - OTHER] EYEBOTH PRN ×2 (17:08→17:33)
[2020-08-20] MEDS ORDERED: [UNRECOGNIZED DRUG - OTHER] EYEBOTH PRN (17:35)
[2020-08-20] MEDS: Multivitamins with Iron/Calcium/Folic Acid/Minerals Tab PO SCH (17:57)
[2020-08-20] MEDS: Melatonin 3 MG Tab PO SCH (19:30)
[2020-08-20] MEDS: atorvaSTATin 40 MG Tab PO SCH (19:30)
[2020-08-21] MEDS: Gabapentin 300 MG Cap PO SCH ×3 (11:08→19:42)
[2020-08-21] MEDS: Aspirin 81 MG Tab.EC PO SCH (11:09)
[2020-08-21] MEDS: DULoxetine 20 MG Cap PO SCH (11:09)
[2020-08-21] MEDS: Lisinopril 10 MG Tab PO SCH (11:16)
[2020-08-21] MEDS: Nicotine 21 MG/24 Hr Patch TOP SCH (11:17)
[2020-08-21] MEDS: Carvedilol 3.125 MG Tab PO SCH ×2 (11:18→18:06)
[2020-08-21] MEDS: Acetaminophen 325 MG Tab PO PRN (11:19)
[2020-08-21] MEDS: Multivitamins with Iron/Calcium/Folic Acid/Minerals Tab PO SCH (17:58)
[2020-08-21] MEDS: Melatonin 3 MG Tab PO SCH (19:42)
[2020-08-21] MEDS: atorvaSTATin 40 MG Tab PO SCH (19:42)
[2020-08-21] MEDS: Docusate Sodium 100 MG Cap PO PRN (19:44)
[2020-08-22] MEDS: Gabapentin 300 MG Cap PO SCH ×3 (07:43→20:24)
[2020-08-22] MEDS: Aspirin 81 MG Tab.EC PO SCH (07:43)
[2020-08-22] MEDS: Lisinopril 10 MG Tab PO SCH (07:43)
[2020-08-22] MEDS: Carvedilol 3.125 MG Tab PO SCH ×2 (07:44→18:32)
[2020-08-22] MEDS: Nicotine 21 MG/24 Hr Patch TOP SCH (07:45)
[2020-08-22] MEDS: DULoxetine 20 MG Cap PO SCH (07:45)
[2020-08-22] MEDS: Multivitamins with Iron/Calcium/Folic Acid/Minerals Tab PO SCH (18:32)
[2020-08-22] MEDS: atorvaSTATin 40 MG Tab PO SCH (20:24)
[2020-08-22] MEDS: Melatonin 3 MG Tab PO SCH (20:24)
[2020-08-22] MEDS: Acetaminophen 325 MG Tab PO PRN (20:26)
[2020-08-23] MEDS: Acetaminophen 325 MG Tab PO PRN ×3 (07:53→20:04)
[2020-08-23] MEDS: Nicotine 21 MG/24 Hr Patch TOP SCH (07:53)
[2020-08-23] MEDS: DULoxetine 20 MG Cap PO SCH (07:54)
[2020-08-23] MEDS: Aspirin 81 MG Tab.EC PO SCH (07:54)
[2020-08-23] MEDS: Carvedilol 3.125 MG Tab PO SCH ×2 (07:54→18:03)
[2020-08-23] MEDS: Lisinopril 10 MG Tab PO SCH (07:54)
[2020-08-23] MEDS: Gabapentin 300 MG Cap PO SCH ×3 (07:54→20:04)
[2020-08-23] MEDS: Multivitamins with Iron/Calcium/Folic Acid/Minerals Tab PO SCH (18:03)
[2020-08-23] MEDS: atorvaSTATin 40 MG Tab PO SCH (20:04)
[2020-08-23] MEDS: Melatonin 3 MG Tab PO SCH (20:04)
[2020-08-24] MEDS: Nicotine 21 MG/24 Hr Patch TOP SCH (07:45)
[2020-08-24] MEDS: DULoxetine 20 MG Cap PO SCH (07:46)
[2020-08-24] MEDS: Acetaminophen 325 MG Tab PO PRN ×3 (07:46→20:02)
[2020-08-24] MEDS: Lisinopril 10 MG Tab PO SCH (07:46)
[2020-08-24] MEDS: Gabapentin 300 MG Cap PO SCH ×3 (07:46→20:02)
[2020-08-24] MEDS: Aspirin 81 MG Tab.EC PO SCH (07:46)
[2020-08-24] MEDS: Carvedilol 3.125 MG Tab PO SCH ×2 (07:47→18:03)
[2020-08-24] MEDS: Multivitamins with Iron/Calcium/Folic Acid/Minerals Tab PO SCH (18:03)
[2020-08-24] MEDS: Docusate Sodium 100 MG Cap PO PRN (18:05)
[2020-08-24] MEDS: Melatonin 3 MG Tab PO SCH (20:02)
[2020-08-24] MEDS: atorvaSTATin 40 MG Tab PO SCH (20:02)
[2020-08-25] MEDS: Lisinopril 10 MG Tab PO SCH (07:28)
[2020-08-25] MEDS: DULoxetine 20 MG Cap PO SCH (07:28)
[2020-08-25] MEDS: Nicotine 21 MG/24 Hr Patch TOP SCH (07:28)
[2020-08-25] MEDS: Gabapentin 300 MG Cap PO SCH ×3 (07:28→20:33)
[2020-08-25] MEDS: Acetaminophen 325 MG Tab PO PRN ×3 (07:29→20:33)
[2020-08-25] MEDS: Carvedilol 3.125 MG Tab PO SCH ×2 (07:29→18:01)
[2020-08-25] MEDS: Aspirin 81 MG Tab.EC PO SCH (07:29)
[2020-08-25] MEDS: Multivitamins with Iron/Calcium/Folic Acid/Minerals Tab PO SCH (18:00)
[2020-08-25] MEDS: atorvaSTATin 40 MG Tab PO SCH (20:32)
[2020-08-25] MEDS: Melatonin 3 MG Tab PO SCH (20:33)
[2020-08-26] MEDS: DULoxetine 20 MG Cap PO SCH (08:23)
[2020-08-26] MEDS: Lisinopril 10 MG Tab PO SCH (08:23)
[2020-08-26] MEDS: Nicotine 21 MG/24 Hr Patch TOP SCH (08:23)
[2020-08-26] MEDS: Acetaminophen 325 MG Tab PO PRN ×3 (08:23→19:40)
[2020-08-26] MEDS: Gabapentin 300 MG Cap PO SCH ×3 (08:24→19:41)
[2020-08-26] MEDS: Carvedilol 3.125 MG Tab PO SCH ×2 (08:24→17:52)
[2020-08-26] MEDS: Aspirin 81 MG Tab.EC PO SCH (08:24)
[2020-08-26] MEDS: Multivitamins with Iron/Calcium/Folic Acid/Minerals Tab PO SCH (17:52)
[2020-08-26] MEDS: Melatonin 3 MG Tab PO SCH (19:41)
[2020-08-26] MEDS: atorvaSTATin 40 MG Tab PO SCH (19:41)
[2020-08-26] MEDS: Docusate Sodium 100 MG Cap PO PRN (19:41)
[2020-08-27] MEDS: Nicotine 21 MG/24 Hr Patch TOP SCH (08:31)
[2020-08-27] MEDS: Lisinopril 10 MG Tab PO SCH (08:32)
[2020-08-27] MEDS: DULoxetine 20 MG Cap PO SCH (08:34)
[2020-08-27] MEDS: Carvedilol 3.125 MG Tab PO SCH ×2 (08:34→17:40)
[2020-08-27] MEDS: Gabapentin 300 MG Cap PO SCH ×3 (08:34→21:12)
[2020-08-27] MEDS: Aspirin 81 MG Tab.EC PO SCH (08:34)
[2020-08-27] MEDS: Acetaminophen 325 MG Tab PO PRN ×2 (08:35→21:12)
[2020-08-27] MEDS: Multivitamins with Iron/Calcium/Folic Acid/Minerals Tab PO SCH (17:40)
[2020-08-27] MEDS: Melatonin 3 MG Tab PO SCH (21:11)
[2020-08-27] MEDS: atorvaSTATin 40 MG Tab PO SCH (21:12)
[2020-08-28] MEDS: DULoxetine 20 MG Cap PO SCH (08:18)
[2020-08-28] MEDS: Nicotine 21 MG/24 Hr Patch TOP SCH (08:18)
[2020-08-28] MEDS: Aspirin 81 MG Tab.EC PO SCH (08:19)
[2020-08-28] MEDS: Carvedilol 3.125 MG Tab PO SCH ×2 (08:19→18:42)
[2020-08-28] MEDS: Gabapentin 300 MG Cap PO SCH ×3 (08:19→19:48)
[2020-08-28] MEDS: Lisinopril 10 MG Tab PO SCH (08:19)
[2020-08-28] MEDS: Multivitamins with Iron/Calcium/Folic Acid/Minerals Tab PO SCH (18:42)
[2020-08-28] MEDS: Melatonin 3 MG Tab PO SCH (19:48)
[2020-08-28] MEDS: atorvaSTATin 40 MG Tab PO SCH (19:48)
[2020-08-28] MEDS: Acetaminophen 325 MG Tab PO PRN (19:48)
[2020-08-29] MEDS: Lisinopril 10 MG Tab PO SCH (08:45)
[2020-08-29] MEDS: Gabapentin 300 MG Cap PO SCH ×3 (08:45→20:27)
[2020-08-29] MEDS: Carvedilol 3.125 MG Tab PO SCH ×2 (08:45→18:23)
[2020-08-29] MEDS: DULoxetine 20 MG Cap PO SCH (08:45)
[2020-08-29] MEDS: Nicotine 21 MG/24 Hr Patch TOP SCH (08:45)
[2020-08-29] MEDS: Aspirin 81 MG Tab.EC PO SCH (08:45)
[2020-08-29] MEDS: Acetaminophen 325 MG Tab PO PRN ×2 (08:46→20:27)
[2020-08-29] MEDS: Multivitamins with Iron/Calcium/Folic Acid/Minerals Tab PO SCH (18:23)
[2020-08-29] MEDS: atorvaSTATin 40 MG Tab PO SCH (20:26)
[2020-08-29] MEDS: Melatonin 3 MG Tab PO SCH (20:27)
[2020-08-30] MEDS: Lisinopril 10 MG Tab PO SCH (09:54)
[2020-08-30] MEDS: Aspirin 81 MG Tab.EC PO SCH (09:55)
[2020-08-30] MEDS: Carvedilol 3.125 MG Tab PO SCH ×2 (09:55→17:48)
[2020-08-30] MEDS: Nicotine 21 MG/24 Hr Patch TOP SCH (09:56)
[2020-08-30] MEDS: DULoxetine 20 MG Cap PO SCH (09:56)
[2020-08-30] MEDS: Gabapentin 300 MG Cap PO SCH ×3 (09:56→20:27)
[2020-08-30] MEDS: Acetaminophen 325 MG Tab PO PRN ×2 (10:05→20:27)
[2020-08-30] MEDS: Multivitamins with Iron/Calcium/Folic Acid/Minerals Tab PO SCH (17:48)
[2020-08-30] MEDS: Melatonin 3 MG Tab PO SCH (20:27)
[2020-08-30] MEDS: atorvaSTATin 40 MG Tab PO SCH (20:27)
[2020-08-31] MEDS: Acetaminophen 325 MG Tab PO PRN ×3 (07:59→20:33)
[2020-08-31] MEDS: Gabapentin 300 MG Cap PO SCH ×3 (07:59→20:33)
[2020-08-31] MEDS: DULoxetine 20 MG Cap PO SCH (07:59)
[2020-08-31] MEDS: Lisinopril 10 MG Tab PO SCH (07:59)
[2020-08-31] MEDS: Nicotine 21 MG/24 Hr Patch TOP SCH (07:59)
[2020-08-31] MEDS: Carvedilol 3.125 MG Tab PO SCH ×2 (07:59→17:40)
[2020-08-31] MEDS: Aspirin 81 MG Tab.EC PO SCH (08:00)
[2020-08-31] MEDS: Docusate Sodium 100 MG Cap PO PRN (12:30)
[2020-08-31] MEDS: Multivitamins with Iron/Calcium/Folic Acid/Minerals Tab PO SCH (17:40)
[2020-08-31] MEDS: Melatonin 3 MG Tab PO SCH (20:33)
[2020-08-31] MEDS: atorvaSTATin 40 MG Tab PO SCH (20:33)
[2020-09-01] MEDS: Nicotine 21 MG/24 Hr Patch TOP SCH (07:25)
[2020-09-01] MEDS: Acetaminophen 325 MG Tab PO PRN ×3 (07:25→20:03)
[2020-09-01] MEDS: DULoxetine 20 MG Cap PO SCH (07:25)
[2020-09-01] MEDS: Carvedilol 3.125 MG Tab PO SCH ×2 (07:25→17:36)
[2020-09-01] MEDS: Gabapentin 300 MG Cap PO SCH ×3 (07:25→20:03)
[2020-09-01] MEDS: Aspirin 81 MG Tab.EC PO SCH (07:25)
[2020-09-01] MEDS: Lisinopril 10 MG Tab PO SCH (10:09)
[2020-09-01] MEDS: Multivitamins with Iron/Calcium/Folic Acid/Minerals Tab PO SCH (17:35)
[2020-09-01] MEDS: Docusate Sodium 100 MG Cap PO PRN (17:41)
[2020-09-01] MEDS: atorvaSTATin 40 MG Tab PO SCH (20:02)
[2020-09-01] MEDS: Melatonin 3 MG Tab PO SCH (20:03)
[2020-09-02] MEDS: Acetaminophen 325 MG Tab PO PRN ×2 (06:28→20:39)
[2020-09-02] MEDS: Nicotine 21 MG/24 Hr Patch TOP SCH (08:50)
[2020-09-02] MEDS: Gabapentin 300 MG Cap PO SCH ×3 (08:51→20:39)
[2020-09-02] MEDS: DULoxetine 20 MG Cap PO SCH (08:51)
[2020-09-02] MEDS: Lisinopril 10 MG Tab PO SCH (08:51)
[2020-09-02] MEDS: Aspirin 81 MG Tab.EC PO SCH (08:51)
[2020-09-02] MEDS: Carvedilol 3.125 MG Tab PO SCH ×2 (08:55→17:39)
[2020-09-02] MEDS: Multivitamins with Iron/Calcium/Folic Acid/Minerals Tab PO SCH (17:39)
[2020-09-02] MEDS: Melatonin 3 MG Tab PO SCH (20:38)
[2020-09-02] MEDS: atorvaSTATin 40 MG Tab PO SCH (20:38)
[2020-09-03] MEDS: Aspirin 81 MG Tab.EC PO SCH (07:23)
[2020-09-03] MEDS: Lisinopril 10 MG Tab PO SCH (07:23)
[2020-09-03] MEDS: Acetaminophen 325 MG Tab PO PRN ×2 (07:23→11:38)
[2020-09-03] MEDS: Nicotine 21 MG/24 Hr Patch TOP SCH (07:23)
[2020-09-03] MEDS: DULoxetine 20 MG Cap PO SCH (07:23)
[2020-09-03] MEDS: Gabapentin 300 MG Cap PO SCH ×2 (07:24→11:39)
[2020-09-03] MEDS: Carvedilol 3.125 MG Tab PO SCH (07:24)
--- NOTE | 2020-09-03 12:28 | PCM.DCSUM1 ---
Discharge Summary - Hospital Course Free Text/Narrative:: Iain Avalos is a 65-year-old male who is admitted to [facility] from 08/11/20- 09/03/20 as stepdown for rehab after an acute stroke. He has a history of hypertension, dyslipidemia, smoking, depression. Patient was hospitalized at [facility] from 07/10/2020 through 07/23/2020; at that point he was discharged to physical rehab through 08/11/2020. Patient originally presented after he had had confusion, slurred speech, and difficulty in word finding. On admission he was found to have a large right hemispheric stroke which is attributed to likely ruptured clot from the right internal carotid artery. Neuro team was also concerned about potential cardiac origin and he was discharged on his seal patch. 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 Patient had a follow-up head CT on 07/28/2020; was restarted on his baby aspirin on 07/29. He did well at rehab completing 3 hours per day including speech therapy for cognitive/medication, physical therapy for remobilization and occupational therapy to aid in his autonomy and a self-cares. While at [facility] he continued to progress well with therapies. At this point he will be discharging home with home health services through [facility] including PT, OT, ST, and nursing. He will continue to wear the helmet while out of bed/ambulating. He is set to have follow-up with PMR on 09/08/20. He is also set up to see neuropsych on 10/06/20 as well as on 10/20/20. He has a CT scheduled for his head on 10/25/20 and a f/u with Neurovascular surgery that same day. I will see him for hospital discharge follow-up in the clinic in 1 week. - Discharge Data Discharge Date: 09/03/20 Discharge Disposition: Home, W Home Health Agency 06 Condition: Good - Referral to Home Health Date of Face to Face Encounter: 09/03/20 Reason for Homebound Status: Use of assistive devices, reliance on others to ambulate safely Primary Care Physician: Fabi Amaya MD Skilled Need: Nursing, PT, OT, ST - Discharge Diagnosis/Problem(s) (1) CVA (cerebral vascular accident) SNOMED Code(s): 737237088 ICD Code: I63.9 - CEREBRAL INFARCTION, UNSPECIFIED Status: Acute Current Visit: No (2) Left arm weakness SNOMED Code(s): 901584888 ICD Code: R29.898 - OTH SYMPTOMS AND SIGNS INVOLVING THE MUSCULOSKELETAL SYSTEM Status: Acute Current Visit: Yes (3) HTN (hypertension) SNOMED Code(s): 01495038 ICD Code: I10 - ESSENTIAL (PRIMARY) HYPERTENSION Status: Acute Current Visit: Yes (4) HLD (hyperlipidemia) SNOMED Code(s): 58404917 ICD Code: E78.5 - HYPERLIPIDEMIA, UNSPECIFIED Status: Acute Current Visit: Yes (5) Depression SNOMED Code(s): 01864632 ICD Code: F32.9 - MAJOR DEPRESSIVE DISORDER, SINGLE EPISODE, UNSPECIFIED Status: Acute Current Visit: Yes - Patient Summary/Data Consults: Consultations 08/11/20 16:43 OT Evaluation and Treatment [CONS] Routine PT Evaluation and Treatment [CONS] Routine REPAIR MILLER Evaluation and Treatment [CONS] Routine - Discharge Plan *PRESCRIPTION DRUG MONITORING PROGRAM REVIEWED*: Not Applicable *COPY OF PRESCRIPTION DRUG MONITORING REPORT IN PATIENT YANCY: Not Applicable Home Medications: Home Meds Aspirin [Adult Low Dose Aspirin EC] 81 mg PO DAILY 01/16/14 [History] Multivitamin [Multi-Vitamin Daily] 1 tab PO DAILY@1800 01/16/14 [History] Acetaminophen [Tylenol] 650 mg PO TID 08/11/20 [History] DULoxetine HCl [Duloxetine HCl] 40 mg PO DAILY 08/11/20 [History] Docusate Sodium 100 mg PO BID 08/11/20 [History] Gabapentin [Neurontin] 300 mg PO TID 08/11/20 [History] Melatonin 3 mg PO BEDTIME 08/11/20 [History] Nicotine [Nicotine Patch] 42 mg TOP DAILY 08/11/20 [History] Sennosides/Docusate Sodium [Senna-Docusate Sodium Tablet] 2 tab PO BEDTIME 08/11/20 [History] atorvaSTATin Calcium [Lipitor] 40 mg PO BEDTIME 08/11/20 [History] carvediloL [Carvedilol] 3.125 mg PO BIDMEALS 08/11/20 [History] lisinopriL [Lisinopril] 30 mg PO DAILY 08/11/20 [History] Non-Formulary Medication [NF Drug] 0 each EYEBOTH TID PRN each 09/03/20 [Rx] - Discharge Summary/Plan Comment DC Time >30 min.: No Discharge Summary/Plan Comment: 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 Will keep close eye on BP as he was having some hypotensive episodes at rehab - Depression - continue duloxetine 40mg daily - HLD - continue atorvastatin - Tobacco use disorder - continue patches (42mg daily) Face to Face Documentation Encounter Date of Encounter: 09/03/20 Patients Name: Iain Avalos Date of : 59 I certify that Mr Avalos is under my care and that I, or a nurse practitioner or physicians radiology physician assistant, had a face to face encounter that meets the physician [id number] requirements on 09/03/20. (This date must match the discharge summary progress note/clinic visit documentation supporting this information.) The encounter with the patient was in whole or in part for the following medical condition, which is the primary reason for home health care: Physical therapy for strengthening, balance, and gait training, retirement for medication instruction /compliance. My clinical findings support the need for the services because of inability to safely get to an outpatient facility for therapy due to fall risk, lack of muscle coordination and tone, balance issues, and weakness. Further, I certify that my clinical findings support that this patient is homebound (i.e. absences from home require considerable and taxing effort, or are for medical reasons, or for mosque services, or infrequent or of short duration when for other reasons) because the patient is unable to safely ambulate distances less than 20 feet, patient requires standby assist due to loss of balance, and patient requires frequent rest periods due to weakness and loss of endurance, patient requires use of assistive device and/or use of kevin/furniture to ambulate (high fall risk) and patient requires assistance of another person to leave the home. Certification: For Home Health Services I certify that Mr. Avalos meets the homebound requirements for the payer source and has a need for intermittent retirement, physician, and/or speech or occupational therapy services in the home for the diagnosis currently outlined in the initial plan of care. These services will continue to be monitored by Dr. Amaya. This physician will periodically review and update the plan of care as required. My signature indicates that this supplemental documentation has been incorporated in the patients medical record. Fabi Amaya MD - Patient Data Vitals - Most Recent: Last Vital Signs Temp 97.7 F 09/03/20 06:00 Pulse 71 09/03/20 07:24 Resp 15 09/03/20 06:00 BP 120/63 09/03/20 07:24 Pulse Ox 97 09/03/20 06:00 Weight - Most Recent: 196 lb 12.8 oz I&O - Last 24 hours: Intake & Output 09/02/20 09/03/20 09/03/20 22:59 06:59 14:59 Intake Total 480 240 Balance 480 240 Med Orders - Current: Current Medications Acetaminophen (Tylenol) 650 mg PO Q4H PRN PRN Reason: Pain (Mild 1-3)/fever Last Admin: 09/03/20 11:38 Dose: 650 mg Documented by: Aspirin (Halfprin) 81 mg PO DAILY [facility] Last Admin: 09/03/20 07:23 Dose: 81 mg Documented by: Atorvastatin Calcium (Lipitor) 40 mg PO BEDTIME [facility] Last Admin: 09/02/20 20:38 Dose: 40 mg Documented by: Carvedilol (Coreg) 3.125 mg PO BIDMEALS [facility] Last Admin: 09/03/20 07:24 Dose: 3.125 mg Documented by: Docusate Sodium (Colace) 100 mg PO BID PRN PRN Reason: Constipation Last Admin: 09/01/20 17:41 Dose: 100 mg Documented by: Duloxetine HCl (Cymbalta) 40 mg PO DAILY [facility] Last Admin: 09/03/20 07:23 Dose: 40 mg Documented by: Gabapentin (Neurontin) 300 mg PO TID [facility] Last Admin: 09/03/20 11:39 Dose: 300 mg Documented by: Lisinopril (Prinivil) 30 mg PO DAILY [facility] Last Admin: 09/03/20 07:23 Dose: 30 mg Documented by: Melatonin (Melatonin) 3 mg PO BEDTIME [facility] Last Admin: 09/02/20 20:38 Dose: 3 mg Documented by: Multivitamins/Minerals (Thera M Plus) 1 tab PO DAILY@1800 [facility] Last Admin: 09/02/20 17:39 Dose: 1 tab Documented by: Nicotine (Habitrol) 42 mg TOP DAILY [facility] Last Admin: 09/03/20 07:23 Dose: 42 mg Documented by: Clear Eyes Complete (Soln Own Med) 0 each EYEBOTH TID PRN PRN Reason: Dry Eyes Last Admin: 08/21/20 11:21 Dose: 1 each Documented by: Ondansetron HCl (Zofran Odt) 4 mg PO Q4H PRN PRN Reason: nausea, able to take PO Polyethylene Glycol (Miralax) 17 gm PO DAILY PRN PRN Reason: Constipation Last Admin: 09/01/20 17:41 Dose: 17 gm Documented by: Discontinued Medications Mineral Oil/White Petrolatum (Lacri-Lube S.O.P Oint) 1 gm EYEBOTH TID PRN PRN Reason: Dry Eyes Mineral Oil/White Petrolatum (Lacri-Lube S.O.P Oint) 0 gm EYEBOTH TID PRN PRN Reason: Dry Eyes - Exam General: Reports: Alert, Oriented, Cooperative, No Acute Distress HEENT: Reports: EOMI, Mucous Membr. Moist/[place] Neck: Reports: Supple Lungs: Reports: Clear to Auscultation, Normal Respiratory Effort Cardiovascular: Reports: Regular Rate, Regular Rhythm GI/Abdominal Exam: Normal Bowel Sounds, Soft, Non-Tender Back Exam: Reports: Normal Inspection Extremities: Normal Inspection, Non-Tender, No Pedal Edema Skin: Reports: Warm, Dry Wound/Incisions: Reports: Healing Well (craniotomy site is well healed) Neurological: Reports: Other (continues with LUE weakness and decreased ROM) Psy/Mental Status: Reports: Alert, Normal Affect, Normal Mood *Q Meaningful Use (DIS) - VTE *Q VTE Mechanical Contraindications *Q: At Risk for Falls VTE Pharmacological Contraindications *Q: Risk of Bleeding VTE Anticoagulation Contraindications: Medical/Procedure Contrai
== END 2020-09-03 16:41 | disposition home health service (06) | DRG 57 ==
LOC: VM.MS 14:21
PROVIDERS: ADMIT Family Medicine; ATTEND Family Medicine
DX: I69.354 Hemiplegia and hemiparesis following cerebral infarction affecting left non-dominant side (principal); M25.512 Pain in left shoulder; I10 Essential (primary) hypertension; F32.9 Major depressive disorder, single episode, unspecified; E78.5 Hyperlipidemia, unspecified; F17.200 Nicotine dependence, unspecified, uncomplicated; E78.00 Pure hypercholesterolemia, unspecified; E66.9 Obesity, unspecified; Z79.82 Long term (current) use of aspirin; Z79.899 Other long term (current) drug therapy; Z86.718 Personal history of other venous thrombosis and embolism; Z98.890 Other specified postprocedural states; Z68.26 Body mass index [BMI] 26.0-26.9, adult
CPT/HCPCS: 51798; 92507-GN; 92526-GN; 96125; 97110-GO; 97110-GP; 97116-GP; 97129-GN; 97130-GN; 97161-GP; 97165-GO; 97168-GO; 97530-GP; 99366-GO; A9270-GY

== ENCOUNTER 2020-09-06 13:08 | Emergency (ER) | payer OTHER ==
--- NOTE | 2020-09-06 13:35 | EDM.PDOC ---
ED HPI GENERAL MEDICAL PROBLEM - General Chief Complaint: Head Injury Stated Complaint: HIT HEAD Time Seen by Provider: 09/06/20 13:24 Source of Information: Reports: Patient, Family - History of Present Illness INITIAL COMMENTS - FREE TEXT/NARRATIVE: Iain is a 65 y/o male who is brought to the ER by his son today after he was seen by a home health nurse today. He had apparently fallen and slipped last night wile getting out of the tub. He did hit the right posterior region and behind his right ear. He is a bit tender, but has otherwise not had any new deficits. He son heard him and went to assist him back up. The home health nurse advised that he come to the ER today for evaluation because of the fall. - Related Data Allergies Allergy/AdvReac Type Severity Reaction Status Date / Time No Known Drug Allergies Allergy Other Verified 09/06/20 13:27 Home Meds: Home Meds Aspirin [Adult Low Dose Aspirin EC] 81 mg PO DAILY 01/16/14 [History] Multivitamin [Multi-Vitamin Daily] 1 tab PO DAILY@1800 01/16/14 [History] Acetaminophen [Tylenol] 650 mg PO TID 08/11/20 [History] DULoxetine HCl [Duloxetine HCl] 40 mg PO DAILY 08/11/20 [History] Docusate Sodium 100 mg PO BID 08/11/20 [History] Gabapentin [Neurontin] 300 mg PO TID 08/11/20 [History] Melatonin 3 mg PO BEDTIME 08/11/20 [History] Nicotine [Nicotine Patch] 42 mg TOP DAILY 08/11/20 [History] Sennosides/Docusate Sodium [Senna-Docusate Sodium Tablet] 2 tab PO BEDTIME 08/11/20 [History] atorvaSTATin Calcium [Lipitor] 40 mg PO BEDTIME 08/11/20 [History] carvediloL [Carvedilol] 3.125 mg PO BIDMEALS 08/11/20 [History] lisinopriL [Lisinopril] 30 mg PO DAILY 08/11/20 [History] Non-Formulary Medication [NF Drug] 0 each EYEBOTH TID PRN each 09/03/20 [Rx] Past Medical History Cardiovascular History: Reports: Blood Clots/VTE/DVT, High Cholesterol, Hypertension, PVD Respiratory History: Reports: Other (See Below) Other Respiratory History: Chronic lung disease Gastrointestinal History: Reports: GI Bleed Musculoskeletal History: Reports: Other (See Below) Other Musculoskeletal History: closed displaced fracture of lateral malleolus fibula Endocrine/Metabolic History: Reports: Obesity/BMI 30+, Other (See Below) Other Endocrine/Metabolic History: impaired fasting glucose - Past Surgical History Head Surgeries/Procedures: Reports: Craniotomy HEENT Surgical History: Reports: Tonsillectomy GI Surgical History: Reports: EGD Neurological Surgical History: Reports: Other (See Below) Other Neurological Surgeries/Procedures: emergency craniotomy Musculoskeletal Surgical History: Reports: ORIF Social & Family History - Family History Family Medical History: No Pertinent Family History Respiratory: Reports: None GI: Reports: None - Tobacco Use Tobacco Use Status *Q: Unknown Ever Used Tobacco - Caffeine Use Caffeine Use: Reports: Coffee Caffeine Use Comment: 4 cups a day - Living Situation & Occupation Living situation: Reports: Occupation: 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[employer]) ED ROS GENERAL - Review of Systems Review Of Systems: See Below Constitutional: Reports: No Symptoms HEENT: Reports: No Symptoms Respiratory: Reports: No Symptoms Cardiovascular: Reports: No Symptoms Endocrine: Reports: No Symptoms GI/Abdominal: Reports: No Symptoms : Reports: No Symptoms Musculoskeletal: Reports: No Symptoms Skin: Reports: No Symptoms Neurological: Reports: No Symptoms Psychiatric: Reports: No Symptoms Hematologic/Lymphatic: Reports: No Symptoms Immunologic: Reports: No Symptoms ED EXAM, HEAD INJURY - Physical Exam Exam: See Below General Appearance: Alert, WD/WN, No Apparent Distress Head: Atraumatic, Other (Note well healed surgical scars to scalp region, right occipatal region of head is soft to touch, +tender in the right posterior region and behind the right ear.) Eyes: Bilateral Eye: PERRL Ears: Normal External Exam, Normal Canal, Hearing Grossly Normal, Normal TMs Nose: Normal Inspection, Normal Mucousa, No Blood Throat/Mouth: Normal Inspection, Normal Lips, Normal Voice Neck: Non-Tender Respiratory: No Respiratory Distress, Lungs Clear, Chest Non-Tender Cardiovascular: Normal Peripheral Pulses, Regular Rate, Rhythm GI/Abdominal Exam: Normal Bowel Sounds, Soft, Non-Tender (Male) Exam: Deferred Rectal (Males) Exam: Deferred Back Exam: Normal Inspection Extremities: Normal Inspection, Normal Capillary Refill, Other (left arm in sling and weak, since CVA) Neurologic: ornamental plasterer helper II-XII nml As Tested, Alert, Normal Mood/Affect, Oriented x 3 Skin: Normal Color, Warm/Dry Course - Vital Signs Text/Narrative:: 1324 The patient was seen by the CONSUMER EDUCATION SPECIALIST. Labs and Head CT ordered. 1420 CT pending yet. Patient impatient and tired of sitting in the exam room and wants to go outside to wait in car. 1440 CT results reviewed, no new bleeds noted. Reviewed labs, note BUN=39. Advised patient of IV fluids or po hydration. He does not want to stay in the hospital for IV fluids and opts to go home and push fluids. Patient and his were given instructions and he left the ER in stable condition. Last Recorded V/S: Last Vital Signs Temp 37.1 C 09/06/20 13:16 Pulse 81 09/06/20 13:16 Resp 16 09/06/20 13:16 BP 98/58 L 09/06/20 13:16 Pulse Ox 95 09/06/20 13:16 - Orders/Labs/Meds Labs: Laboratory Tests 09/06/20 09/06/20 09/06/20 Range/Units 13:46 13:46 13:46 WBC 7.5 (4.0-10.0) x10^3/uL RBC 4.50 (4.5-6.0) x10^6/uL Hgb 12.8 L D (14.0-18.0) g/dL Hct 40.6 (40.0-52.0) % MCV 90.2 D (78.0-93.0) fL MCH 28.4 (26.0-32.0) pg MCHC 31.5 L (32.0-36.0) g/dL RDW Coeff of Karan 14.3 (10.0-15.0) % Plt Count 341 D (130-400) x10^3/uL Neut % (Auto) 63.1 (50.0-80.0) % Lymph % (Auto) 21.1 L (25.0-50.0) % Whitley % (Auto) 10.7 (2.0-11.0) % Eos % (Auto) 4.7 H (0.0-4.0) % Baso % (Auto) 0.4 (0.2-1.2) % PT 10.2 (9.9-12.5) SEC INR 0.9 L (2.0-3.5) APTT 22.6 L (25.6-32.8) SEC Sodium 144 (136-145) mmol/L Potassium 4.4 (3.5-5.1) mmol/L Chloride 106 (98-107) mmol/L Carbon Dioxide 29 (21-32) mmol/L Anion Gap 13.4 (5-15) mmol/L BUN 39 H (7-18) mg/dL Creatinine 1.1 (0.70-1.30) mg/dL Est Cr Clr Drug Dosing TNP Estimated GFR (MDRD) > 60 Glucose 114 H (74-106) mg/dL Calcium 8.7 (8.5-10.1) mg/dL Corrected Calcium 9.18 (8.5-10.1) mg/dL Magnesium 2.0 (1.8-2.4) mg/dL Total Bilirubin 0.3 (0.2-1.0) mg/dL AST 13 L (15-37) U/L ALT 36 (16-63) U/L Alkaline Phosphatase 116 (46-116) U/L Total Protein 7.0 (6.4-8.2) g/dL Albumin 3.4 (3.4-5.0) g/dL Globulin 3.6 Albumin/Globulin Ratio 0.94 Departure - Departure Time of Disposition: 14:37 Disposition: Home, Self-Care 01 Condition: Good Clinical Impression: Dehydration, Status post CVA Fall Qualifiers: Encounter type: initial encounter Qualified Code(s): W19.XXXA - Unspecified fall, initial encounter - Discharge Information *PRESCRIPTION DRUG MONITORING PROGRAM REVIEWED*: Not Applicable *COPY OF PRESCRIPTION DRUG MONITORING REPORT IN PATIENT YANCY: Not Applicable Instructions: Dehydration, Adult, [id number] Forms: ED Department Discharge Additional Instructions: -Push fluids -If your unsteadiness is worse than usual, you may need to return for IV fluids. Drink lots of water and other clear liquids. -Rest as needed -Continue all other therapies and meds as prescribed -Return as needed to the ER or follow with your PCP Sepsis Event Note (ED) - Evaluation Sepsis Screening Result: No Definite Risk - Focused Exam Vital Signs: Vital Signs Temp Pulse Resp BP Pulse Ox 09/06/20 13:16 37.1 C 81 16 98/58 L 95
[2020-09-06 14:09] LABS: PTT,PARTIAL THROMBOPLSTIN TIME 22.6 SEC (25.6-32.8)
[2020-09-06 14:12] LABS: ANION GAP 13.4 mmol/L (5-15); CHLORIDE,CL 106 mmol/L (98-107); SODIUM,NA 144 mmol/L (136-145)
--- NOTE | 2020-09-06 14:32 | CT ---
[id number] CT/CT Head WO IV EXAM: NONCONTRAST HEAD CT INDICATION: FELL AND HIT HEAD ON TUB LAST NIGHT, NO NEW DEFICITS COMPARISON: July 10, 2020. DISCUSSION: Interval right craniotomy with expected evolutionary and now chronic appearing right cerebral infarcts with areas of involvement portions of the posterior cerebral, middle cerebral and anterior cerebral territories. Hyperdensity along the superior aspect of the craniotomy defect appearing to represent reconstruction material as it ends at the margins of the craniotomy defect. No definite hemorrhage. A chronic left frontal infarct is unchanged in appearance. No mass effect, midline shift, hydrocephalus or new infarcts are identified. The orbits and paranasal sinuses are unremarkable. IMPRESSION: 1. No acute intracranial findings. 2. Multiple chronic bilateral cerebral infarcts. Ming Spaulding MD 09/06/20 0413 Thank you for allowing us to participate in the care of your patient.
== END 2020-09-06 14:44 | disposition home or self-care (01) ==
LOC: VM.ED 13:08
DX: Z04.3 Encounter for examination and observation following other accident (principal); E86.0 Dehydration; I10 Essential (primary) hypertension; E78.00 Pure hypercholesterolemia, unspecified; E66.9 Obesity, unspecified; J44.9 Chronic obstructive pulmonary disease, unspecified; Z86.73 Personal history of transient ischemic attack (TIA), and cerebral infarction without residual deficits; Z79.82 Long term (current) use of aspirin; Z79.899 Other long term (current) drug therapy
CPT/HCPCS: 36415; 70450; 80053; 83735; 85025; 85610; 85730; 99284-25; 99285

== ENCOUNTER 2020-12-17 19:39 | Emergency (ER) | payer OTHER ==
--- NOTE | 2020-12-17 20:56 | EDM.PDOC ---
ED HPI GENERAL MEDICAL PROBLEM - General Chief Complaint: General Stated Complaint: Facial swelling, post cranial surgery, fever Time Seen by Provider: 12/17/20 19:45 Source of Information: Reports: Patient History Limitations: Reports: No Limitations - History of Present Illness INITIAL COMMENTS - FREE TEXT/NARRATIVE: Patient comes emergency department today with concerns of a fever. This patient with a history of hypertension peripheral vascular disease hyperlipidemia who had a rather large right-sided initially ischemic stroke followed by a hemorrhagic spontaneous stroke that ended up with a craniotomy and a craniectomy. He has some left-sided neglect and visual field cuts following his rather extensive stroke and hemorrhagic stroke as well. He has been wearing a helmet since June following his craniotomy and was just discharged from the hospital yesterday where he had a cranioplasty for the replacement of his bone which was removed from his craniotomy. Today when he was at home he noticed that he had a fever of 100.8 and he is also noticed a little bit more swelling to the right side of his restoration. He has no more headache than he typically does. No change in his visual acuity. No weakness dizziness lightheadedness. No chills or body aches. No chest pain no shortness of breath or difficulty breathing. No cough or congestion. No abdominal pain nausea or vomiting. No rash sores or lesions on his skin. He has related that he has been peeing more frequently in smaller amounts. No black or tarry stools. He had concerns for his recent cranioplasty with his fever and the swelling that has developed on his forehead. No recent falls trauma or head injury. Pt did take some tylenol at dinner time for a headache. Right frontal/sided headache Pain Score (Numeric/FACES): 4 - Related Data Allergies Allergy/AdvReac Type Severity Reaction Status Date / Time No Known Drug Allergies Allergy Other Verified 12/17/20 20:44 Home Meds: Home Meds Aspirin [Adult Low Dose Aspirin EC] 81 mg PO DAILY 01/16/14 [History] Multivitamin [Multi-Vitamin Daily] 1 tab PO DAILY@1800 01/16/14 [History] Acetaminophen [Tylenol] 650 mg PO TID 08/11/20 [History] DULoxetine HCl [Duloxetine HCl] 40 mg PO DAILY 08/11/20 [History] Docusate Sodium 100 mg PO BID 08/11/20 [History] Gabapentin [Neurontin] 300 mg PO TID 08/11/20 [History] Melatonin 3 mg PO BEDTIME 08/11/20 [History] Nicotine [Nicotine Patch] 42 mg TOP DAILY 08/11/20 [History] Sennosides/Docusate Sodium [Senna-Docusate Sodium Tablet] 2 tab PO BEDTIME 08/11/20 [History] atorvaSTATin Calcium [Lipitor] 40 mg PO BEDTIME 08/11/20 [History] carvediloL [Carvedilol] 3.125 mg PO BIDMEALS 08/11/20 [History] lisinopriL [Lisinopril] 30 mg PO DAILY 08/11/20 [History] Non-Formulary Medication [NF Drug] 0 each EYEBOTH TID PRN each 09/03/20 [Rx] Past Medical History Cardiovascular History: Reports: Blood Clots/VTE/DVT, High Cholesterol, Hypertension, PVD Respiratory History: Reports: Other (See Below) Other Respiratory History: Chronic lung disease Gastrointestinal History: Reports: GI Bleed Musculoskeletal History: Reports: Other (See Below) Other Musculoskeletal History: closed displaced fracture of lateral malleolus fibula Endocrine/Metabolic History: Reports: Obesity/BMI 30+, Other (See Below) Other Endocrine/Metabolic History: impaired fasting glucose - Past Surgical History Head Surgeries/Procedures: Reports: Craniotomy HEENT Surgical History: Reports: Tonsillectomy GI Surgical History: Reports: EGD Neurological Surgical History: Reports: Other (See Below) Other Neurological Surgeries/Procedures: emergency craniotomy Musculoskeletal Surgical History: Reports: ORIF Social & Family History - Family History Family Medical History: No Pertinent Family History Respiratory: Reports: None GI: Reports: None - Caffeine Use Caffeine Use: Reports: Coffee Caffeine Use Comment: 4 cups a day - Living Situation & Occupation Living situation: Reports: 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 ED EXAM, GENERAL - Physical Exam Exam: See Below Exam Limited By: No Limitations General Appearance: Alert, WD/WN Eye Exam: Bilateral Eye: EOMI, PERRL Ears: Normal External Exam, Normal TMs Nose: Normal Inspection, Normal Mucosa Throat/Mouth: Normal Inspection, Normal Lips, Normal Oropharynx, Normal Voice Head: Normocephalic, Facial Swelling (There is a small amount of swelling on the right temporal region which is nowhere near where the incision site is. There is no tenderness. There is no bogginess. There is no warmth induration or erythema.). No: Atraumatic (There is a large cease shaped cranioplasty incision over the right parietal region that is not erythematous not swollen no drainage skin well approximated no signs of infection. Sutures and [place] are in good position.), Sinus Tenderness Neck: Normal Inspection, Supple, Non-Tender Respiratory/Chest: No Respiratory Distress, Lungs Clear, Normal Breath Sounds, No Accessory Muscle Use, Chest Non-Tender Cardiovascular: Normal Peripheral Pulses, Regular Rate, Rhythm Peripheral Pulses: 2+: Radial (L), Radial (R), Posterior Tibial (L), Posterior Tibial (R), Dorsalis Pedis (L), Dorsalis Pedis (R) GI/Abdominal: Normal Bowel Sounds, Soft, Non-Tender Back Exam: Normal Inspection Extremities: Normal Inspection (He has hemiplegia of his left arm he is able to ambulate. There is no rash sores lesions open wounds there is upper or lower extremities.), Normal Capillary Refill Neurological: Alert, Oriented, CN II-XII Intact, No Motor/Sensory Deficits (From his baseline according to his .). No: Confused Psychiatric: Normal Affect, Normal Mood Skin Exam: Warm, Dry, Intact, Normal Color, No Rash Lymphatic: No Adenopathy Course - Vital Signs Last Recorded V/S: Last Vital Signs Temp 99.5 F 12/17/20 19:40 Pulse Resp 16 12/17/20 19:40 BP 137/71 12/17/20 19:40 Pulse Ox 95 12/17/20 19:40 - Orders/Labs/Meds Orders: Active Orders 24 hr Category Date Time Status CULTURE BLOOD [BC] Stat Lab 12/17/20 20:40 Received CULTURE BLOOD [BC] Stat Lab 12/17/20 20:45 Received Blood Culture x2 Reflex Set [OM.PC] Stat Oth 12/17/20 20:10 Ordered Labs: Laboratory Tests 12/17/20 12/17/20 12/17/20 Range/Units 20:25 20:40 20:40 WBC 7.1 (4.0-10.0) x10^3/uL RBC 4.58 (4.5-6.0) x10^6/uL Hgb 13.1 L (14.0-18.0) g/dL Hct 40.1 (40.0-52.0) % MCV 87.6 (78.0-93.0) fL MCH 28.6 (26.0-32.0) pg MCHC 32.7 (32.0-36.0) g/dL RDW Coeff of Karan 15.2 H (10.0-15.0) % Plt Count 335 (130-400) x10^3/uL Neut % (Auto) 59.4 (50.0-80.0) % Lymph % (Auto) 28.4 (25.0-50.0) % [place] % (Auto) 9.4 (2.0-11.0) % Eos % (Auto) 2.1 (0.0-4.0) % Baso % (Auto) 0.7 (0.2-1.2) % Sodium 147 H (136-145) mmol/L Potassium 3.5 (3.5-5.1) mmol/L Chloride 107 (98-107) mmol/L Carbon Dioxide 31 (21-32) mmol/L Anion Gap 12.5 (5-15) mmol/L BUN 25 H (7-18) mg/dL Creatinine 0.9 (0.70-1.30) mg/dL Est Cr Clr Drug Dosing 92.21 mL/min Estimated GFR (MDRD) > 60 Glucose 114 H (70-99) mg/dL Lactic Acid (0.4-2.0) mmol/L Calcium 8.5 (8.5-10.1) mg/dL Corrected Calcium 9.1 (8.5-10.1) mg/dL Total Bilirubin 0.2 (0.2-1.0) mg/dL AST 16 (15-37) U/L ALT 22 (16-63) U/L Alkaline Phosphatase 146 H (46-116) U/L C-Reactive Protein 0.7 (<=0.9) mg/dL Total Protein 6.8 (6.4-8.2) g/dL Albumin 3.3 L (3.4-5.0) g/dL Globulin 3.5 Albumin/Globulin Ratio 0.94 Urine Color Yellow (YELLOW) Urine Appearance Clear (CLEAR) Urine pH 5.5 (5.0-8.0) Ur Specific [place] >=1.030 Urine Protein Negative (NEGATIVE) mg/dL Urine Glucose (UA) Negative (NEGATIVE) mg/dL Urine Ketones Negative (NEGATIVE) mg/dL Urine Occult Blood Negative (NEGATIVE) Urine Nitrite Negative (NEGATIVE) Urine Bilirubin Negative (NEGATIVE) Urine Urobilinogen 0.2 (0.2) EU/dL Ur Leukocyte Esterase Negative (NEGATIVE) 12/17/20 Range/Units 20:40 WBC (4.0-10.0) x10^3/uL RBC (4.5-6.0) x10^6/uL Hgb (14.0-18.0) g/dL Hct (40.0-52.0) % MCV (78.0-93.0) fL MCH (26.0-32.0) pg MCHC (32.0-36.0) g/dL RDW Coeff of Karan (10.0-15.0) % Plt Count (130-400) x10^3/uL Neut % (Auto) (50.0-80.0) % Lymph % (Auto) (25.0-50.0) % [place] % (Auto) (2.0-11.0) % Eos % (Auto) (0.0-4.0) % Baso % (Auto) (0.2-1.2) % Sodium (136-145) mmol/L Potassium (3.5-5.1) mmol/L Chloride (98-107) mmol/L Carbon Dioxide (21-32) mmol/L Anion Gap (5-15) mmol/L BUN (7-18) mg/dL Creatinine (0.70-1.30) mg/dL Est Cr Clr Drug Dosing mL/min Estimated GFR (MDRD) Glucose (70-99) mg/dL Lactic Acid 1.4 (0.4-2.0) mmol/L Calcium (8.5-10.1) mg/dL Corrected Calcium (8.5-10.1) mg/dL Total Bilirubin (0.2-1.0) mg/dL AST (15-37) U/L ALT (16-63) U/L Alkaline Phosphatase (46-116) U/L C-Reactive Protein (<=0.9) mg/dL Total Protein (6.4-8.2) g/dL Albumin (3.4-5.0) g/dL Globulin Albumin/Globulin Ratio Urine Color (YELLOW) Urine Appearance (CLEAR) Urine pH (5.0-8.0) Ur Specific [place] Urine Protein (NEGATIVE) mg/dL Urine Glucose (UA) (NEGATIVE) mg/dL Urine Ketones (NEGATIVE) mg/dL Urine Occult Blood (NEGATIVE) Urine Nitrite (NEGATIVE) Urine Bilirubin (NEGATIVE) Urine Urobilinogen (0.2) EU/dL Ur Leukocyte Esterase (NEGATIVE) - Re-Assessments/Exams Free Text/Narrative Re-Assessment/Exam: 12/17/20 Labs drawn to include blood cultures x 2. CBC with a WBC of 7.1 which is actually down from his discharge from yesterday of 9 at [facility], hemoglobin 13.1 platelet 335. CMP with a sodium of 147, BUN 25, creatinine 0.9 Glucose 114 unremarkable liver enzymes. C-reactive protein is absolutely normal at 0.7. Lactic acid normal at 1.4. Urinalysis negative for any infectious appearing process. No blood ketones protein. I did speak with Dr. Jackson from Neurosurgey at [facility] in [place]. Unlikely to be a surgical infection this close to his surgery date. He is unconcerned at this time especially with the surgical site that appears very well. His guidance is to try incentive spirometry that the patient has not been directed to do so as well as stay cool as the temperature outside was 102 today. Okay to discharge home. I discussed the plan of care with the patient is he comfortable and agrees to the plan of care. Discharge instructions as below are explained to the patient he was comfortable with this plan and his questions were answered. I did reiterate that if anytime he has development of surgical site infection such as redness erythema drainage or he has a fever uncontrolled with Tylenol or ibuprofen or he has any new symptoms he should recheck. He was comfortable with this plan and his questions are answered Departure - Departure Time of Disposition: 21:55 Disposition: Home, Self-Care 01 Clinical Impression: Postoperative fever - Discharge Information Referrals: Fabi Amaya MD [Primary Care Provider] - Forms: ED Department Discharge Additional Instructions: Make sure and stay cool at home. Keep well hydrated. Do the incentive spirometry about 10 times an hour. If fever persists and not controlled with tylenol and or ibuprofen and or new symptoms develop recheck in the ED or contact your surgeon Dr. Morillo at [facility] in [place]. Otherwise follow up with PCP in the next week if any continued issues or concerns. Sepsis Event Note (ED) - Focused Exam Vital Signs: Vital Signs Temp Temp Resp BP Pulse Ox 12/17/20 19:40 98.5 F 99.5 F 16 137/71 95 - My Orders Last 24 Hours: My Active Orders 12/17/20 20:10 Blood Culture x2 Reflex Set [OM.PC] Stat 12/17/20 20:40 CULTURE BLOOD [BC] Stat 12/17/20 20:45 CULTURE BLOOD [BC] Stat - Assessment/Plan Last 24 Hours: My Active Orders 12/17/20 20:10 Blood Culture x2 Reflex Set [OM.PC] Stat 12/17/20 20:40 CULTURE BLOOD [BC] Stat 12/17/20 20:45 CULTURE BLOOD [BC] Stat
[2020-12-17 21:30] LABS: CHLORIDE,CL 107 mmol/L (98-107); SODIUM,NA 147 mmol/L (136-145)
[2020-12-17 21:34] LABS: ANION GAP 12.5 mmol/L (5-15)
== END 2020-12-17 22:09 | disposition home or self-care (01) ==
LOC: VM.ED 19:39
DX: R50.82 Postprocedural fever (principal); R51.9 Headache, unspecified; E78.00 Pure hypercholesterolemia, unspecified; I10 Essential (primary) hypertension; E66.9 Obesity, unspecified; Z68.29 Body mass index [BMI] 29.0-29.9, adult; Z79.82 Long term (current) use of aspirin; Z79.899 Other long term (current) drug therapy
CPT/HCPCS: 36415; 80053; 81003; 83605; 85025; 86140; 87040; 99283; 99284

== ENCOUNTER 2021-02-04 15:53 | Emergency (ER) | payer OTHER ==
--- NOTE | 2021-02-04 16:23 | EDM.PDOC ---
ED HPI GENERAL MEDICAL PROBLEM - General Chief Complaint: General Stated Complaint: fatigue, sweaty Time Seen by Provider: 02/04/21 15:53 Source of Information: Reports: Patient History Limitations: Reports: No Limitations - History of Present Illness Onset: Today Quality: Reports: Other Severity: Mild Improves with: Reports: None Worsens with: Reports: None Context: Reports: Other Associated Symptoms: Reports: Diaphoresis, Malaise, Nausea/Vomiting - Related Data Allergies Allergy/AdvReac Type Severity Reaction Status Date / Time No Known Drug Allergies Allergy Other Verified 02/04/21 16:10 Home Meds: Home Meds Aspirin [Adult Low Dose Aspirin EC] 81 mg PO DAILY 01/16/14 [History] Multivitamin [Multi-Vitamin Daily] 1 tab PO DAILY@1800 01/16/14 [History] Acetaminophen [Tylenol] 650 mg PO TID 08/11/20 [History] DULoxetine HCl [Duloxetine HCl] 40 mg PO DAILY 08/11/20 [History] Gabapentin [Neurontin] 300 mg PO TID 08/11/20 [History] Melatonin 3 mg PO BEDTIME 08/11/20 [History] Nicotine [Nicotine Patch] 42 mg TOP DAILY 08/11/20 [History] atorvaSTATin Calcium [Lipitor] 40 mg PO BEDTIME 08/11/20 [History] Ascorbate Calcium [Vitamin C] 500 mg PO DAILY 12/18/20 [History] Aspirin 81 mg PO DAILY 12/18/20 [History] Ferrous Sulfate [Iron] 325 mg PO DAILY 12/18/20 [History] Ondansetron [Zofran ODT] 4 mg PO Q6H PRN #10 tab.dis 02/04/21 [Rx] Past Medical History Cardiovascular History: Reports: Blood Clots/VTE/DVT, High Cholesterol, Hypertension, PVD Respiratory History: Reports: Other (See Below) Other Respiratory History: Chronic lung disease Gastrointestinal History: Reports: GI Bleed Musculoskeletal History: Reports: Other (See Below) Other Musculoskeletal History: closed displaced fracture of lateral malleolus fibula Neurological History: Reports: CVA, Other (See Below) Other Neuro History: hemorrhragic stroke Endocrine/Metabolic History: Reports: Obesity/BMI 30+, Other (See Below) Other Endocrine/Metabolic History: impaired fasting glucose - Past Surgical History Head Surgeries/Procedures: Reports: Craniotomy HEENT Surgical History: Reports: Tonsillectomy GI Surgical History: Reports: EGD Neurological Surgical History: Reports: Other (See Below) Other Neurological Surgeries/Procedures: emergency craniotomy Musculoskeletal Surgical History: Reports: ORIF Social & Family History - Family History Family Medical History: No Pertinent Family History Respiratory: Reports: None GI: Reports: None - Caffeine Use Caffeine Use: Reports: Coffee Caffeine Use Comment: 4 cups a day - Living Situation & Occupation Living situation: Reports: Occupation: Employed (Lives at home with . [employer] for [employer]) ED ROS GENERAL - Review of Systems Review Of Systems: Comprehensive ROS is negative, except as noted in HPI. Constitutional: Reports: Malaise, Fatigue HEENT: Reports: No Symptoms Respiratory: Reports: No Symptoms Cardiovascular: Reports: No Symptoms Endocrine: Reports: No Symptoms GI/Abdominal: Reports: Nausea : Reports: No Symptoms Musculoskeletal: Reports: No Symptoms Skin: Reports: Diaphoresis Neurological: Reports: No Symptoms Psychiatric: Reports: No Symptoms Hematologic/Lymphatic: Reports: No Symptoms ED EXAM, GENERAL - Physical Exam Exam: See Below Exam Limited By: No Limitations General Appearance: Alert, WD/WN, No Apparent Distress Throat/Mouth: Normal Inspection, Normal Lips, Normal Teeth, Normal Voice, No Airway Compromise Head: Atraumatic, Normocephalic Neck: Normal Inspection, Supple, Non-Tender, Full Range of Motion Respiratory/Chest: No Respiratory Distress, Lungs Clear, Normal Breath Sounds, No Accessory Muscle Use, Chest Non-Tender Cardiovascular: Normal Peripheral Pulses, Regular Rate, Rhythm GI/Abdominal: Normal Bowel Sounds, Soft, Non-Tender Back Exam: Normal Inspection, Full Range of Motion Extremities: Normal Inspection, Normal Range of Motion, Non-Tender, No Pedal Edema, Normal Capillary Refill Neurological: Alert, Oriented, Normal Gait Psychiatric: Normal Affect, Normal Mood Skin Exam: Warm, Dry, Intact, Normal Color #1 Interpretation EKG Date: 02/04/21 Rhythm: NSR Rate (Beats/Min): 95 [place]: Normal P-Wave: Present QRS: Normal ST-T: Normal QT: Normal Comparison: NA - No Prior EKG Course - Vital Signs Last Recorded V/S: Last Vital Signs Temp 36.8 C 02/04/21 16:00 Pulse 106 H 02/04/21 16:00 Resp 16 02/04/21 16:00 BP 129/91 H 02/04/21 16:00 Pulse Ox 91 L 02/04/21 16:00 - Orders/Labs/Meds Orders: Active Orders 24 hr Category Date Time Status EKG Documentation Completion [RC] STAT Care 02/04/21 16:13 Active Chest 1V Frontal [CR] Stat Exams 02/04/21 16:13 Ordered Labs: Laboratory Tests 02/04/21 02/04/21 02/04/21 Range/Units 16:18 16:24 16:24 WBC 9.0 (4.0-10.0) x10^3/uL RBC 5.37 (4.5-6.0) x10^6/uL Hgb 15.3 D (14.0-18.0) g/dL Hct 45.6 (40.0-52.0) % MCV 84.9 (78.0-93.0) fL MCH 28.5 (26.0-32.0) pg MCHC 33.6 (32.0-36.0) g/dL RDW Coeff of Karan 15.0 (10.0-15.0) % Plt Count 268 (130-400) x10^3/uL Neut % (Auto) 77.0 (50.0-80.0) % Lymph % (Auto) 11.9 L (25.0-50.0) % [place] % (Auto) 7.6 (2.0-11.0) % Eos % (Auto) 3.2 (0.0-4.0) % Baso % (Auto) 0.3 (0.2-1.2) % Sodium 142 (136-145) mmol/L Potassium 3.9 (3.5-5.1) mmol/L Chloride 106 (98-107) mmol/L Carbon Dioxide 28 (21-32) mmol/L Anion Gap 11.9 (5-15) mmol/L BUN 33 H (7-18) mg/dL Creatinine 1.1 (0.70-1.30) mg/dL Est Cr Clr Drug Dosing 75.44 mL/min Estimated GFR (MDRD) > 60 Glucose 127 H (70-99) mg/dL Lactic Acid (0.4-2.0) mmol/L Calcium 9.0 (8.5-10.1) mg/dL Corrected Calcium 9.4 (8.5-10.1) mg/dL Total Bilirubin 0.3 (0.2-1.0) mg/dL AST 19 (15-37) U/L ALT 48 (16-63) U/L Alkaline Phosphatase 178 H (46-116) U/L Troponin I High Sens 7 (<=76) ng/L Total Protein 7.7 (6.4-8.2) g/dL Albumin 3.5 (3.4-5.0) g/dL Globulin 4.2 Albumin/Globulin Ratio 0.83 SARS CoV-2 RNA Rapid KATI Negative (NEGATIVE) 02/04/21 Range/Units 16:24 WBC (4.0-10.0) x10^3/uL RBC (4.5-6.0) x10^6/uL Hgb (14.0-18.0) g/dL Hct (40.0-52.0) % MCV (78.0-93.0) fL MCH (26.0-32.0) pg MCHC (32.0-36.0) g/dL RDW Coeff of Karan (10.0-15.0) % Plt Count (130-400) x10^3/uL Neut % (Auto) (50.0-80.0) % Lymph % (Auto) (25.0-50.0) % [place] % (Auto) (2.0-11.0) % Eos % (Auto) (0.0-4.0) % Baso % (Auto) (0.2-1.2) % Sodium (136-145) mmol/L Potassium (3.5-5.1) mmol/L Chloride (98-107) mmol/L Carbon Dioxide (21-32) mmol/L Anion Gap (5-15) mmol/L BUN (7-18) mg/dL Creatinine (0.70-1.30) mg/dL Est Cr Clr Drug Dosing mL/min Estimated GFR (MDRD) Glucose (70-99) mg/dL Lactic Acid 1.6 (0.4-2.0) mmol/L Calcium (8.5-10.1) mg/dL Corrected Calcium (8.5-10.1) mg/dL Total Bilirubin (0.2-1.0) mg/dL AST (15-37) U/L ALT (16-63) U/L Alkaline Phosphatase (46-116) U/L Troponin I High Sens (<=76) ng/L Total Protein (6.4-8.2) g/dL Albumin (3.4-5.0) g/dL Globulin Albumin/Globulin Ratio SARS CoV-2 RNA Rapid KATI (NEGATIVE) Meds: Medications Discontinued Medications Generic Name Dose Route Start Last Admin Trade Name Freq PRN Reason Stop Dose Admin Ondansetron HCl 4 mg 02/04/21 16:24 02/04/21 16:28 Ondansetron 4 Mg Tab.Dis PO 02/04/21 16:25 4 mg ONETIME ONE Administration Departure - Departure Time of Disposition: 17:30 Disposition: Home, Self-Care 01 Condition: Good Clinical Impression: Viral gastritis - Discharge Information *PRESCRIPTION DRUG MONITORING PROGRAM REVIEWED*: Not Applicable *COPY OF PRESCRIPTION DRUG MONITORING REPORT IN PATIENT YANCY: Not Applicable Instructions: Gastritis, Adult, [id number] Forms: ED Department Discharge Additional Instructions: 1. rest 2. increase your water intake 3. Continue all at home medications 4. Activity and diet as tolerated 5. Can take over the counter Tylenol for any pain or discomfort 6. Follow up with PCP if symptoms continue, return, or progress 7. Call with any questions or concerns Sepsis Event Note (ED) - Focused Exam Vital Signs: Vital Signs Temp Pulse Resp BP Pulse Ox 02/04/21 16:00 36.8 C 106 H 16 129/91 H 91 L - My Orders Last 24 Hours: My Active Orders 02/04/21 16:13 EKG Documentation Completion [RC] STAT Chest 1V Frontal [CR] Stat - Assessment/Plan Last 24 Hours: My Active Orders 02/04/21 16:13 EKG Documentation Completion [RC] STAT Chest 1V Frontal [CR] Stat Assessment:: 1. fatigue 2. nausea/vomiting 3. Gastritis Plan: 1. Labs completed in the ER. Results reviewed with the patient 2. chest x-ray completed in ER results reviewed with the patient 3. ekg completed in ER results reviewed with the patient 4. Zofran given in the ER to help with nausea 5. Patient and nursing staff was updated regarding the plan of care 6. Education provided the patient regarding activity, diet, rest, [id number] medication modalities, and follow-up care was provided 7. Patient and family are agreeable to the above plan of care 8. All questions and concerns were addressed with the patient and family prior to discharge
[2021-02-04] MEDS ORDERED: Ondansetron 4 MG Tab.DIS PO ONE (16:24)
[2021-02-04 16:50] LABS: CHLORIDE,CL 106 mmol/L (98-107); SODIUM,NA 142 mmol/L (136-145)
[2021-02-04 16:56] LABS: ANION GAP 11.9 mmol/L (5-15)
--- NOTE | 2021-02-04 17:24 | CR ---
[id number] RAD/RAD Chest PA or AP 1V EXAM: SINGLE VIEW CHEST. INDICATION: FATIGUE COMPARISON: CORRELATION IS MADE WITH JULY 10, 2020 FINDINGS: The lungs are clear The cardiac silhouette is enlarged but stable IMPRESSION: NO PNEUMONIA OR EDEMA Efe Pike MD 02/04/21 [id number] Thank you for allowing us to participate in the care of your patient.
== END 2021-02-04 17:30 | disposition home or self-care (01) ==
LOC: VM.ED 15:53
DX: A08.4 Viral intestinal infection, unspecified (principal); E78.00 Pure hypercholesterolemia, unspecified; I10 Essential (primary) hypertension; E66.9 Obesity, unspecified; Z68.27 Body mass index [BMI] 27.0-27.9, adult; Z79.82 Long term (current) use of aspirin; Z79.899 Other long term (current) drug therapy; Z20.822 Contact with and (suspected) exposure to COVID-19
CPT/HCPCS: 36415; 71045; 80053; 83605; 84484; 85025; 93005; 93010; 99284; 99284-25; A9270-GY; U0002

== ENCOUNTER 2021-02-04 20:26 | Emergency (ER) | payer OTHER ==
--- NOTE | 2021-02-04 20:49 | EDM.PDOC ---
ED HPI GENERAL MEDICAL PROBLEM - General Chief Complaint: General Stated Complaint: STROKE CODE- seizure activity Time Seen by Provider: 02/04/21 20:26 Source of Information: Reports: Patient History Limitations: Reports: No Limitations - History of Present Illness INITIAL COMMENTS - FREE TEXT/NARRATIVE: Patient comes in the emergency department via EMS with complaints of seizure- like activity. Patient was actually in the emergency department earlier this afternoon for fatigue and diaphoresis. Patient was worked up and was found labs to be negative, EKG to be negative, chest x-ray to have infiltrates. Patient was sent home with antibiotics and told to follow-up or to return if symptoms progress or worsen. Patient returns via EMS as stated above for seizure-like activity. states that she had noted the patient sitting in his recliner and made a abnormal sound and when she looked over that he was convulsing/shaking and his eyes rolled back in his head. He also had bit his tongue. EMS state that the patient did have postictal conditions upon arrival. He was very delayed. Patient also does have left-sided deficits as noted in earlier charting due to a stroke that occurred approximately 1 year ago. Patient is currently having left-sided weakness in his hand that does appear to be a little bit more significant than it was earlier today. However his lower extremities and facial notations are no different. Patient is alert and oriented and remembers events leading up to the incident and post incident. Patient states that he still continues to feel diaphoretic. Has not taken his temperature nor does he feel that he has a temperature. He denies any body aches, fever, chest pain, shortness of breath, dizziness, lightheadedness, abdominal pain, or genitourinary concerns. Onset: Sudden Location: Reports: Other Quality: Reports: Other Severity: Moderate Improves with: Reports: None Worsens with: Reports: None Context: Reports: Other Associated Symptoms: Reports: No Other Symptoms - Related Data Allergies Allergy/AdvReac Type Severity Reaction Status Date / Time No Known Drug Allergies Allergy Other Verified 02/04/21 16:10 Home Meds: Home Meds Aspirin [Adult Low Dose Aspirin EC] 81 mg PO DAILY 01/16/14 [History] Multivitamin [Multi-Vitamin Daily] 1 tab PO DAILY@1800 01/16/14 [History] Acetaminophen [Tylenol] 650 mg PO TID 08/11/20 [History] DULoxetine HCl [Duloxetine HCl] 40 mg PO DAILY 08/11/20 [History] Gabapentin [Neurontin] 300 mg PO TID 08/11/20 [History] Melatonin 3 mg PO BEDTIME 08/11/20 [History] Nicotine [Nicotine Patch] 42 mg TOP DAILY 08/11/20 [History] atorvaSTATin Calcium [Lipitor] 40 mg PO BEDTIME 08/11/20 [History] Ascorbate Calcium [Vitamin C] 500 mg PO DAILY 12/18/20 [History] Aspirin 81 mg PO DAILY 12/18/20 [History] Ferrous Sulfate [Iron] 325 mg PO DAILY 12/18/20 [History] Ondansetron [Zofran ODT] 4 mg PO Q6H PRN #10 tab.dis 02/04/21 [Rx] Past Medical History Cardiovascular History: Reports: Blood Clots/VTE/DVT, High Cholesterol, Hypertension, PVD Respiratory History: Reports: Other (See Below) Other Respiratory History: Chronic lung disease Gastrointestinal History: Reports: GI Bleed Musculoskeletal History: Reports: Other (See Below) Other Musculoskeletal History: closed displaced fracture of lateral malleolus fibula Neurological History: Reports: CVA, Other (See Below) Other Neuro History: hemorrhragic stroke Endocrine/Metabolic History: Reports: Obesity/BMI 30+, Other (See Below) Other Endocrine/Metabolic History: impaired fasting glucose - Infectious Disease History Infectious Disease History: Reports: None - Past Surgical History Head Surgeries/Procedures: Reports: Craniotomy HEENT Surgical History: Reports: Tonsillectomy GI Surgical History: Reports: EGD Neurological Surgical History: Reports: Other (See Below) Other Neurological Surgeries/Procedures: emergency craniotomy Musculoskeletal Surgical History: Reports: ORIF Social & Family History - Family History Family Medical History: No Pertinent Family History Respiratory: Reports: None GI: Reports: None - Caffeine Use Caffeine Use: Reports: Coffee Caffeine Use Comment: 4 cups a day - Living Situation & Occupation Living situation: Reports: 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 Constitutional: Reports: Malaise HEENT: Reports: No Symptoms Respiratory: Reports: No Symptoms Cardiovascular: Reports: No Symptoms Endocrine: Reports: No Symptoms GI/Abdominal: Reports: No Symptoms : Reports: No Symptoms Musculoskeletal: Reports: No Symptoms Skin: Reports: Diaphoresis Neurological: Reports: Weakness Psychiatric: Reports: No Symptoms Hematologic/Lymphatic: Reports: No Symptoms Immunologic: Reports: No Symptoms ED EXAM, GENERAL - Physical Exam Exam: See Below Exam Limited By: No Limitations General Appearance: Alert, WD/WN, No Apparent Distress Eye Exam: Bilateral Eye: EOMI, PERRL Nose: Normal Inspection, Normal Mucosa Throat/Mouth: Normal Inspection, Normal Lips, No Airway Compromise Head: Atraumatic, Normocephalic Neck: Normal Inspection, Supple, Non-Tender, Full Range of Motion Respiratory/Chest: No Respiratory Distress, Lungs Clear, Normal Breath Sounds, No Accessory Muscle Use, Chest Non-Tender Cardiovascular: Normal Peripheral Pulses, Regular Rate, Rhythm, No Edema GI/Abdominal: Normal Bowel Sounds, Soft, Non-Tender Back Exam: Normal Inspection, Full Range of Motion Extremities: Normal Inspection, Normal Range of Motion, Non-Tender, Normal Capillary Refill Neurological: Alert, Oriented, Sensory/Motor Deficit (has had stroke in the past ) Skin Exam: Warm, Dry, Intact, Normal Color #2 Interpretation EKG Date: 02/04/21 Rhythm: NSR Rate (Beats/Min): 102 Trilla: Normal P-Wave: Present QRS: Normal ST-T: Normal QT: Normal Comparison: No Change Course - Orders/Labs/Meds Orders: Active Orders 24 hr Category Date Time Status EKG Documentation Completion [RC] STAT Care 02/04/21 20:35 Active Chest 1V Frontal [CR] Stat Exams 02/04/21 20:35 Ordered Head wo Cont [CT] Stat Exams 02/04/21 20:36 Ordered Sodium Chloride 0.9% [Normal Saline] 1,000 ml Med 02/04/21 21:44 Active IV ONETIME Medication Orders Sodium Chloride (Normal Saline) 1,000 mls @ 1,000 mls/hr IV ONETIME ONE Stop: 02/04/21 22:43 Labs: Laboratory Tests 02/04/21 02/04/21 02/04/21 Range/Units 20:40 20:40 20:40 WBC 9.5 (4.0-10.0) x10^3/uL RBC 5.12 (4.5-6.0) x10^6/uL Hgb 14.6 (14.0-18.0) g/dL Hct 43.8 (40.0-52.0) % MCV 85.5 (78.0-93.0) fL MCH 28.5 (26.0-32.0) pg MCHC 33.3 (32.0-36.0) g/dL RDW Coeff of Karan 15.0 (10.0-15.0) % Plt Count 281 (130-400) x10^3/uL Neut % (Auto) 68.4 (50.0-80.0) % Lymph % (Auto) 19.3 L (25.0-50.0) % [place] % (Auto) 9.8 (2.0-11.0) % Eos % (Auto) 2.2 (0.0-4.0) % Baso % (Auto) 0.3 (0.2-1.2) % Sodium 143 (136-145) mmol/L Potassium 3.8 (3.5-5.1) mmol/L Chloride 106 (98-107) mmol/L Carbon Dioxide 23 (21-32) mmol/L Anion Gap 17.8 H (5-15) mmol/L BUN 32 H (7-18) mg/dL Creatinine 1.4 H (0.70-1.30) mg/dL Est Cr Clr Drug Dosing TNP Estimated GFR (MDRD) 51 Glucose 145 H (70-99) mg/dL Calcium 8.8 (8.5-10.1) mg/dL Corrected Calcium 9.4 (8.5-10.1) mg/dL Total Bilirubin 0.2 (0.2-1.0) mg/dL AST 22 (15-37) U/L ALT 46 (16-63) U/L Alkaline Phosphatase 170 H (46-116) U/L Creatine Kinase 171 (39-308) U/L Troponin I High Sens 10 (<=76) ng/L Total Protein 7.0 (6.4-8.2) g/dL Albumin 3.3 L (3.4-5.0) g/dL Globulin 3.7 Albumin/Globulin Ratio 0.89 Amylase 29 (25-115) U/L Lipase 59 L (73-393) U/L Urine Color (YELLOW) Urine Appearance (CLEAR) Urine pH (5.0-8.0) Ur Specific [place] Urine Protein (NEGATIVE) mg/dL Urine Glucose (UA) (NEGATIVE) mg/dL Urine Ketones (NEGATIVE) mg/dL Urine Occult Blood (NEGATIVE) Urine Nitrite (NEGATIVE) Urine Bilirubin (NEGATIVE) Urine Urobilinogen (0.2) EU/dL Ur Leukocyte Esterase (NEGATIVE) U Hyaline Cast (Auto) Urine RBC (NOT SEEN) /HPF Urine WBC (NOT SEEN) /HPF Ur Squamous Epith Cells (NOT SEEN) /HPF Urine Bacteria (NOT SEEN) /HPF Urine Mucus (NOT SEEN) /LPF Monoscreen Negative (NEGATIVE) 02/04/21 Range/Units 21:30 WBC (4.0-10.0) x10^3/uL RBC (4.5-6.0) x10^6/uL Hgb (14.0-18.0) g/dL Hct (40.0-52.0) % MCV (78.0-93.0) fL MCH (26.0-32.0) pg MCHC (32.0-36.0) g/dL RDW Coeff of Karan (10.0-15.0) % Plt Count (130-400) x10^3/uL Neut % (Auto) (50.0-80.0) % Lymph % (Auto) (25.0-50.0) % [place] % (Auto) (2.0-11.0) % Eos % (Auto) (0.0-4.0) % Baso % (Auto) (0.2-1.2) % Sodium (136-145) mmol/L Potassium (3.5-5.1) mmol/L Chloride (98-107) mmol/L Carbon Dioxide (21-32) mmol/L Anion Gap (5-15) mmol/L BUN (7-18) mg/dL Creatinine (0.70-1.30) mg/dL Est Cr Clr Drug Dosing Estimated GFR (MDRD) Glucose (70-99) mg/dL Calcium (8.5-10.1) mg/dL Corrected Calcium (8.5-10.1) mg/dL Total Bilirubin (0.2-1.0) mg/dL AST (15-37) U/L ALT (16-63) U/L Alkaline Phosphatase (46-116) U/L Creatine Kinase (39-308) U/L Troponin I High Sens (<=76) ng/L Total Protein (6.4-8.2) g/dL Albumin (3.4-5.0) g/dL Globulin Albumin/Globulin Ratio Amylase (25-115) U/L Lipase (73-393) U/L Urine Color Yellow (YELLOW) Urine Appearance Slightly cloudy H (CLEAR) Urine pH 5.0 (5.0-8.0) Ur Specific [place] >=1.030 Urine Protein 100 H (NEGATIVE) mg/dL Urine Glucose (UA) Negative (NEGATIVE) mg/dL Urine Ketones Negative (NEGATIVE) mg/dL Urine Occult Blood Negative (NEGATIVE) Urine Nitrite Negative (NEGATIVE) Urine Bilirubin Negative (NEGATIVE) Urine Urobilinogen 0.2 (0.2) EU/dL Ur Leukocyte Esterase Negative (NEGATIVE) U Hyaline Cast (Auto) Few Urine RBC 0-5 (NOT SEEN) /HPF Urine WBC 0-5 (NOT SEEN) /HPF Ur Squamous Epith Cells Not seen (NOT SEEN) /HPF Urine Bacteria Rare (NOT SEEN) /HPF Urine Mucus Few H (NOT SEEN) /LPF Monoscreen (NEGATIVE) Meds: Medications Generic Name Dose Route Start Last Admin Trade Name Freq PRN Reason Stop Dose Admin Sodium Chloride 1,000 mls @ 1,000 mls/hr 02/04/21 21:44 Normal Saline IV 02/04/21 22:43 ONETIME ONE Discontinued Medications Generic Name Dose Route Start Last Admin Trade Name Freq PRN Reason Stop Dose Admin Levetiracetam 500 mg/ Premix 100 mls @ 400 mls/hr 02/04/21 21:40 02/04/21 21:55 IV 02/04/21 21:54 400 mls/hr ONETIME ONE Administration Departure - Departure Time of Disposition: 21:40 Disposition: Home, Self-Care 01 Condition: Fair Clinical Impression: Seizure-like activity, Postictal state, History of stroke - Discharge Information *PRESCRIPTION DRUG MONITORING PROGRAM REVIEWED*: Not Applicable *COPY OF PRESCRIPTION DRUG MONITORING REPORT IN PATIENT YANCY: Not Applicable Referrals: Fabi Amaya MD [Primary Care Provider] - Forms: ED Department Discharge, Interfacility Transfer EMTALA - My Orders Last 24 Hours: My Active Orders 02/04/21 20:35 EKG Documentation Completion [RC] STAT Chest 1V Frontal [CR] Stat 02/04/21 20:36 Head wo Cont [CT] Stat 02/04/21 21:44 Sodium Chloride 0.9% [Normal Saline] 1,000 ml IV ONETIME - Assessment/Plan Last 24 Hours: My Active Orders 02/04/21 20:35 EKG Documentation Completion [RC] STAT Chest 1V Frontal [CR] Stat 02/04/21 20:36 Head wo Cont [CT] Stat 02/04/21 21:44 Sodium Chloride 0.9% [Normal Saline] 1,000 ml IV ONETIME Assessment:: 1. Seizure like activity 2. History of ischemic stroke with secondary multivessel hemorrhage 3. Postictal state Plan: 1. Stroke code 2. Labs completed in the ER. Results reviewed with the patient 3. IV initiated in the emergency department 4. NIH Scale- 8 NIH Scale repeated- [address] scan of head completed in ER. Results reviewed 6. Activase administration- not given after speaking to neurology due to patient having seizure at the same time as last know well time. Deficits are noted at the patients baseline 7. Patient and nursing staff was updated regarding the plan of care 8. Consultation completed with [facility] Dr. Cunha to accept transfer 9. Keppra 500mg IV given in ER 9. Patient will be transferred to a higher level of care for further medical evaluation and treatment. 10. Patient and family are agreeable to the above plan of care 11. All questions and concerns were addressed with the patient and family prior to discharge
[2021-02-04 21:04] LABS: CHLORIDE,CL 106 mmol/L (98-107); SODIUM,NA 143 mmol/L (136-145)
[2021-02-04 21:06] LABS: ANION GAP 17.8 mmol/L (5-15)
[2021-02-04] MEDS ORDERED: levETIRAcetam in NaCl (iso-os) 500 MG in Premix Bag 1 BAG IV ONE ×2 (21:40)
[2021-02-04] MEDS ORDERED: Sodium Chloride 0.9% 1,000 ML IV ONE (21:44)
--- NOTE | 2021-02-05 09:41 | CR ---
[id number] RAD/RAD Chest PA or AP 1V EXAM: SINGLE VIEW CHEST. INDICATION: SEIZURE COMPARISON: CORRELATION IS MADE WITH FEBRUARY 04, 2021 EARLIER TODAY FINDINGS: The lungs are clear The cardiac silhouette is stable IMPRESSION: STABLE CHEST Efe Pike MD 02/05/21 1114 Thank you for allowing us to participate in the care of your patient.
== END 2021-02-04 23:00 | disposition home or self-care (01) ==
LOC: VM.ED 20:26
DX: R25.9 Unspecified abnormal involuntary movements (principal); E78.00 Pure hypercholesterolemia, unspecified; I10 Essential (primary) hypertension; E66.9 Obesity, unspecified; Z86.73 Personal history of transient ischemic attack (TIA), and cerebral infarction without residual deficits; Z79.82 Long term (current) use of aspirin; Z79.899 Other long term (current) drug therapy
CPT/HCPCS: 36415; 70450; 71045; 80053; 81001; 82150; 82550; 83690; 84484; 85025; 86308; 93005; 93010; 96365; 99284; 99285-25; J1953